=== PATIENT | female | born 1990 | race Caucasian/White ===

== ENCOUNTER 2018-06-05 19:36 | Emergency (ER) | payer OTHER ==
[2018-06-05 21:41] LABS: APPEARANCE,URINE CLEAR; BILIRUBIN,URINE NEGATIVE (NEGATIVE); COLOR,URINE YELLOW; GLUCOSE, URINE NEGATIVE (NEGATIVE); KETONES,URINE NEGATIVE (NEGATIVE); LEUKOCYTE ESTERASE,URINE MODERATE (NEGATIVE); NITRITE,URINE NEGATIVE (NEGATIVE); PROTEIN,URINE NEGATIVE (NEGATIVE); URINE SPECIFIC GRAVITY 1.013
--- NOTE | 2018-06-05 22:57 | ER Document Report ---
HPI - HPI Patient complains to provider of: Dysuria Time Seen by Provider: 06/05/18 21:23 Pain Level: 3 Context: Patient is a 27-year-old female presents to the emergency for dysuria and " Dark" urine. Patient states she had a cholecystectomy 2 weeks ago. States she remembers listing on the paperwork if she had dark urine to present to the emergency room. Patient states when she thinks about it she does have some minor dysuria at the end of urinating. Patient's denying any vaginal discharge. Patient states she also has upper respiratory symptoms. States she has been taking Mucinex and Motrin for generalized cough, congestion, sore throat. Patient states she has been using her at home albuterol inhaler and is requesting a refill. Past medical history asthma, pulmonary embolus in Medications: Albuterol Allergies: None Last menstrual period 05/06/2018 - URINARY Urinary: REPORTS: Dysuria, Urgency, Frequency - REPRODUCTIVE Reproductive: DENIES: : Past Medical History - General Information source: Patient - Social History Smoking Status: Unknown if Ever Smoked Family History: Reviewed & Not Pertinent Patient has suicidal ideation: No Patient has homicidal ideation: No Renal/ Medical History: Denies: Hx Peritoneal Dialysis Vertical Provider Document - CONSTITUTIONAL Agree With Documented VS: Yes Notes: GENERAL: Alert, interacts well. No acute distress. HEAD: Normocephalic, atraumatic. No frontal or maxillary sinus tenderness noted EYES: Pupils equal, round, and reactive to light. Extraocular movements intact. ENT: Oral mucosa moist, tongue midline. Nares patent, swollen turbinates noted bilaterally, TM's intact, nonerythematous, nonbulging bilaterally. Pharynx within normal limits no palatal petechiae noted NECK: Full range of motion. Supple. Trachea midline. No lymphadenopathy appreciated LUNGS: Clear to auscultation bilaterally, no wheezes, rales, or rhonchi. No respiratory distress. HEART: Regular rate and rhythm. No murmur ABDOMEN: Soft, non-tender. Non-distended. Bowel sounds present in all 4 quadrants. EXTREMITIES: Moves all 4 extremities spontaneously. No edema, normal radial and dorsalis pedis pulses bilaterally. No cyanosis. BACK: no cervical, thoracic, lumbar midline tenderness. No saddle anesthesia, normal distal neurovascular exam. NEUROLOGICAL: Alert and oriented x3. Normal speech. cranial nerves II through XII grossly intact PSYCH: Normal affect, normal mood. SKIN: Warm, dry, normal turgor. No rashes or lesions noted. Course - Re-evaluation Re-evalutation: 06/05/18 22:53 Shows no signs of infection, sent for culture. Patient's denying any abdominal pain at this time. Patient will be treated with Nasonex and Tessalon Perles for generalized upper respiratory infection. Patient's vitals are stable, stable for discharge. - Vital Signs Vital signs: Temp Pulse Resp BP Pulse Ox 98.5 F 98 16 135/80 H 99 06/05/18 20:23 06/05/18 20:23 06/05/18 20:23 06/05/18 20:23 06/05/18 20:23 - Laboratory Laboratory results interpreted by me: 06/05/18 20:24 Urine Urobilinogen 2.0 H Ur Leukocyte Esterase MODERATE H Discharge - Discharge Clinical Impression: Upper respiratory infection, Dysuria Condition: Stable Disposition: HOME, SELF-CARE Instructions: Upper Respiratory Illness ([facility]), Viral Syndrome ([facility]) Additional Instructions: As we discussed you have been seen and treated in the emergency department for an upper respiratory infection. You have also been seen for painful urinating. Your urine shows no signs of infection or bleeding. We have sent it for culture. Please make sure you take prescription medications as prescribed, continue with [id number] Mucinex and Motrin. Please stay well-hydrated and follow-up with your primary care provider in the next 24-48 hours. Please return to the emergency room should you have any other concerning symptoms. Prescriptions: Benzonatate [Tessalon Perles 100 mg Capsule] 100 mg PO Q8HP PRN #40 capsule PRN Reason: RX: Albuterol Sulfate [Proair HFA Inhalation Aerosol 8.5 gm MDI] 2 puff IH Q4H PRN #1 mdi PRN Reason: Mometasone Furoate [Nasonex] 1 spray NS Q12 #1 spray.pump Forms: Return to Work
[2018-06-05 23:06] VITALS: BP 144/81
== END 2018-06-05 23:06 | disposition home or self-care (01) ==
LOC: ER 19:36
DX: J06.9 Acute upper respiratory infection, unspecified (principal); R30.0 Dysuria
CPT/HCPCS: 81001; 81025; 87086; 99283

== ENCOUNTER 2018-06-13 20:07 | Emergency (ER) | payer MEDICAID, OTHER ==
--- NOTE | 2018-06-14 01:42 | ER Document Report ---
ED General - General Chief Complaint: Breathing Difficulty Stated Complaint: DIFFICULTY BREATHING Time Seen by Provider: 06/14/18 01:28 Mode of Arrival: Ambulatory Information source: Patient Notes: 27-year-old female with asthma presents with complaint of shortness of breath that started 3 days prior to arrival. Patient does have a previous history of PE and recently was discontinued from Lovenox. Patient also reports a recent cholecystectomy in April 2018. Patient's previous PE was during her first in 2016. Patient reports recent cough, nasal congestion, right upper chest pain that she describes as a dull ache that has been present for approximately 3 weeks. - HPI Onset: Other Onset/Duration: Gradual, Persistent Quality of pain: Achy Severity: Mild Associated symptoms: Chest pain, Nonproductive cough, Shortness of breath. ez es: Fever, Nausea, Vomiting Exacerbated by: Coughing, Deep breathing Relieved by: Denies Similar symptoms previously: Yes Recently seen / treated by doctor: No - Related Data Allergies/Adverse Reactions: No Known Allergies Allergy (Verified 06/05/18 19:42) Past Medical History - General Information source: Patient - Social History Smoking Status: Never Smoker Frequency of alcohol use: None Drug Abuse: None Lives with: Family Family History: Reviewed & Not Pertinent Patient has suicidal ideation: No Patient has homicidal ideation: No Pulmonary Medical History: Reports: Hx Asthma Renal/ Medical History: Denies: Hx Peritoneal Dialysis Past Surgical History: Reports: Hx Cholecystectomy Review of Systems - Review of Systems Constitutional: Recent illness EENT: denies: Blurred vision Cardiovascular: Chest pain, Dyspnea. denies: Palpitations Respiratory: Cough, Short of breath. denies: Wheezing Gastrointestinal: denies: Diarrhea, Nausea, Vomiting Genitourinary: denies: Dysuria Female Genitourinary: Irregular period Musculoskeletal: denies: Back pain Skin: denies: Rash Hematologic/Lymphatic: No symptoms reported Neurological/Psychological: denies: Headaches -: Yes All other systems reviewed and negative Physical Exam - Vital signs Vitals: Temp Pulse Resp BP Pulse Ox 98.1 F 90 16 134/73 H 99 06/13/18 20:18 06/13/18 20:18 06/13/18 20:18 06/13/18 20:18 06/13/18 20:18 - Notes Notes: PHYSICAL EXAMINATION: GENERAL: Well-appearing, well-nourished and in no acute distress. HEAD: Atraumatic, normocephalic. EYES: Pupils equal round and reactive to light, extraocular movements intact, conjunctiva are normal. ENT: Nares patent, oropharynx clear without exudates. Moist mucous membranes. NECK: Normal range of motion, supple without lymphadenopathy LUNGS: Diminished breath sounds in the right lower lung field. No wheezes rales or rhonchi. HEART: Regular rate and rhythm without murmurs ABDOMEN: Soft, nontender, nondistended abdomen. No guarding, no rebound. No masses appreciated. Female : deferred Musculoskeletal: Normal range of motion, no pitting or edema. No cyanosis. NEUROLOGICAL: Cranial nerves grossly intact. Normal speech, normal gait. Normal sensory, motor exams PSYCH: Normal mood, normal affect. SKIN: Warm, Dry, normal turgor, no rashes or lesions noted. Course - Re-evaluation Re-evalutation: 06/14/18 02:56 Laboratory 06/13/18 06/14/18 21:59 01:53 D-Dimer 0.37 Urine Color YELLOW Urine Appearance CLEAR Urine pH 8.0 Ur Specific [place] 1.015 Urine Protein NEGATIVE Urine Glucose (UA) NEGATIVE Urine Ketones NEGATIVE Urine Blood NEGATIVE Urine Nitrite NEGATIVE Urine Bilirubin NEGATIVE Urine Urobilinogen NEGATIVE Ur Leukocyte Esterase SMALL H Urine WBC (Auto) 1 Urine RBC (Auto) 0 Squamous Epi Cells Auto 2 Urine Mucus (Auto) RARE Urine Ascorbic Acid NEGATIVE Urine HCG, Qual NEGATIVE Chest X-Ray 06/14/18 01:36 IMPRESSION: Negative chest copyright 2011 [employer]- All Rights Reserved Temp Pulse Resp BP Pulse Ox 98.3 F 92 16 136/88 H 100 06/14/18 01:13 06/14/18 01:13 06/14/18 01:13 06/14/18 01:13 06/14/18 01:13 Presentation is most consistent with a viral upper respiratory infection. Patient is overall well appearance, vitals within normal limits, well-hydrated. Patient denies any headache, neck pain, and has no evidence of meningismus on examination. Lungs are clear bilaterally. No evidence of respiratory distress. Based on clinical exam and history, I do not suspect an acute pneumonia, pulmonary embolism, meningitis, strep pharyngitis, or an acute encephalitis. Chest x-ray within normal limits. D-dimer unremarkable. Will discharge patient with return precautions and followup recommendations. They are in agreement this plan have verbalized understanding return precautions. - Vital Signs Vital signs: Temp Pulse Resp BP Pulse Ox 98.3 F 92 18 133/70 H 100 06/14/18 03:03 06/14/18 03:03 06/14/18 03:03 06/14/18 03:03 06/14/18 03:03 - Laboratory Laboratory results interpreted by me: 06/13/18 21:59 Ur Leukocyte Esterase SMALL H - Diagnostic Test Radiology reviewed: Image reviewed, Reports reviewed - EKG Interpretation by Me EKG shows normal: Sinus rhythm Rate: Normal Rhythm: NSR When compared to previous EKG there are: No significant change Discharge - Discharge Clinical Impression: Cough Dyspnea Qualifiers: Dyspnea type: unspecified Qualified Code(s): R06.00 - Dyspnea, unspecified URI (upper respiratory infection) Qualifiers: URI type: unspecified URI Qualified Code(s): J06.9 - Acute upper respiratory infection, unspecified Condition: Good Disposition: HOME, SELF-CARE Instructions: Upper Respiratory Illness ([facility]) Additional Instructions: Follow up with your [id number] hours for further care or return to the ED IMMEDIATELY if symptoms worsen or you have any concerns. If you cannot afford to follow up with your primary care physician a list of low cost clinics have been provided at the end of your discharge papers as well. Please return with any worsening shortness of breath, fever, persistent cough or inability to tolerate food or fluids. Most prescribed medications have multiple side effects. The safest thing to do is when filling your prescription speak to your pharmacist regarding possible interactions with your normal home medications and over the counter medications such as Ibuprofen, Tylenol, Benadryl. If you experience any symptoms that cause you discomfort or concern you should discontinue the medication immediately and return to the emergency room or call your primary care physician. Prescriptions: Guaifenesin/Codeine Phos [Robitussin-AC Syrup 59 ml] 5 ml PO QHS PRN #75 ml PRN Reason: Cough Forms: Elevated Blood Pressure
[2018-06-14 02:20] LABS: APPEARANCE,URINE CLEAR; BILIRUBIN,URINE NEGATIVE (NEGATIVE); COLOR,URINE YELLOW; GLUCOSE, URINE NEGATIVE (NEGATIVE); KETONES,URINE NEGATIVE (NEGATIVE); LEUKOCYTE ESTERASE,URINE SMALL (NEGATIVE); NITRITE,URINE NEGATIVE (NEGATIVE); PROTEIN,URINE NEGATIVE (NEGATIVE); URINE SPECIFIC GRAVITY 1.015; UROBILINOGEN,URINE NEGATIVE mg/dL (<2.0)
[2018-06-14] MEDS ORDERED: IPRATROPIUM/ALBUTEROL 0.5-2.5 MG/3 ML AMPUL NEB ONE (02:32)
--- NOTE | 2018-06-14 02:47 | RADIOLOGY REPORT (SQ) ---
EXAM DESCRIPTION: XR CHEST 2 VIEWS COMPLETED DATE/TME: 06/14/2018 01:36 CLINICAL HISTORY: 27 years, Female, sob COMPARISON: None. NUMBER OF VIEWS: 2 TECHNIQUE: 2 views of the chest LIMITATIONS: None. FINDINGS: Heart size normal. Lungs clear. No pneumothorax IMPRESSION: Negative chest copyright 2010 [employer]- All Rights Reserved
[2018-06-14 03:04] VITALS: BP 133/70
--- NOTE | 2018-06-14 15:34 | EKG REPORT ---
SEVERITY:- NORMAL ECG - SINUS RHYTHM : Confirmed by: Nadiya Shell MD 14-Jun-2018 15:32:45
== END 2018-06-14 03:06 | disposition home or self-care (01) ==
LOC: ER 20:07
DX: J06.9 Acute upper respiratory infection, unspecified (principal); R06.00 Dyspnea, unspecified; R06.02 Shortness of breath; Z90.49 Acquired absence of other specified parts of digestive tract
CPT/HCPCS: 93005; 94640; 99285; 36415; 81025; 81001; 85379; 71046; 93010; J7620

== ENCOUNTER → 2018-08-24 | Outpatient (CLI) | payer BC, MEDICAID ==
--- NOTE | 2018-08-24 13:58 | RADIOLOGY REPORT (SQ) ---
EXAM DESCRIPTION: CT ABD/PELVIS WITH IV ORAL COMPLETED DATE/TIME: 08/24/2018 1:35 pm REASON FOR STUDY: ACUTE BILIARY PANCREATITIS (K85.10) K85.10 BILIARY ACUTE PANCREATITIS WITHOUT NEC ROSIS OR INFECT COMPARISON: None. TECHNIQUE: CT scan of the abdomen and pelvis performed using helical scanning technique with dynamic intravenous contrast injection. No oral contrast. Images reviewed with lung, soft tissue, and bone windows. Reconstructed coronal and sagittal MPR images reviewed. Delayed images for evaluation of the urinary system also acquired. All images stored on PACS. All CT scanners at this facility use dose modulation, iterative reconstruction, and/or weight based d osing when appropriate to reduce radiation dose to as low as reasonably achievable (ALARA). [facility]: Dose Right [facility]: CareDose [facility]: Dose Right [facility]: Teradose 4D [facility]: X-BOLT [employer] CONTRAST TYPE AND DOSE: 100 mL Omnipaque 350- low osmolar. RENAL FUNCTION: None required. The patient is less than 50 years old. RADIATION DOSE: CT Rad equipment meets quality standard of care and radiation dose reduction techniq ues were employed. CTDIvol: 10.1 - 11.7 mGy. DLP: 1157 mGy-cm.. LIMITATIONS: None. FINDINGS: LOWER CHEST: No significant findings. No nodules or infiltrates. LIVER: Normal size. No masses. A biliary stent is present. No dilated ducts. SPLEEN: Normal size. No focal lesions. PANCREAS: No masses. No significant calcifications. No adjacent inflammation or peripancreatic fluid collections. Pancreatic duct not dilated. GALLBLADDER: No identified stones by CT criteria. No inflammatory changes to suggest cholecystitis. ADRENAL GLANDS: No significant masses or asymmetry. RIGHT KIDNEY AND URETER: No solid masses. No significant calcifications. No hydronephrosis or hyd roureter. LEFT KIDNEY AND URETER: No solid masses. No significant calcifications. No hydronephrosis or hydr oureter. AORTA AND VESSELS: No aneurysm. No dissection. Renal arteries, SMA, celiac without stenosis. RETROPERITONEUM: No retroperitoneal adenopathy, hemorrhage or masses. BOWEL AND PERITONEAL CAVITY: No masses or inflammatory changes. No free fluid or peritoneal masses. APPENDIX: Normal. PELVIS: No mass. No free fluid. Normal bladder. ABDOMINAL WALL: No masses. No hernias. BONES: No significant or acute findings. OTHER: No other significant finding. IMPRESSION: 1. BILIARY STENT PRESENT. NO DILATED BILE DUCTS OR PANCREATIC DUCT. NO INFLAMMATORY CHANGES INVOLVI NG THE PANCREAS. 2. NO OTHER SIGNIFICANT OR ACUTE FINDING IN THE ABDOMEN OR PELVIS ON CT SCAN WITH IV CONTRAST. TECHNICAL DOCUMENTATION: JOB ID: [id number] Quality ID # [id number]: Final reports with documentation of one or more dose reduction techniques (e.g., Au tomated exposure control, adjustment of the mA and/or kV according to patient size, use of iterative reconstruction technique) 2010 [employer]- All Rights Reserved Reading location - IP/workstation name: [email or web address]
== END ==
LOC: RAD 12:35
PROVIDERS: ATTEND Internal Medicine
DX: K85.10 Biliary acute pancreatitis without necrosis or infection (principal)
CPT/HCPCS: 74177

== ENCOUNTER → 2018-09-10 | Outpatient (CLI) | payer BC ==
[2018-09-10 13:36] LABS: ALANINE AMINOTRANSFERASE 82 U/L (9-52); ALBUMIN 4.4 g/dL (3.5-5.0); ALKALINE PHOSPHATASE 118 U/L (38-126); ANION GAP 11 (5-19); ASPARTATE AMINO TRANSFERASE 19 U/L (14-36); BILIRUBIN,DIRECT 0.3 mg/dL (0.0-0.4); BILIRUBIN,TOTAL 0.5 mg/dL (0.2-1.3); BLOOD UREA NITROGEN 11 mg/dL (7-20); CALCIUM 9.8 mg/dL (8.4-10.2); CARBON DIOXIDE 25 mmol/L (22-30); CHLORIDE 103 mmol/L (98-107); GLUCOSE 87 mg/dL (75-110); POTASSIUM 4.7 mmol/L (3.6-5.0); SODIUM 139.4 mmol/L (137-145); TOTAL PROTEIN 7.1 g/dL (6.3-8.2)
== END ==
LOC: OD 11:38
PROVIDERS: ATTEND Internal Medicine
DX: K85.10 Biliary acute pancreatitis without necrosis or infection (principal)
CPT/HCPCS: 36415; 80053

== ENCOUNTER 2018-09-22 12:23 | Emergency (ER) | payer BC ==
--- NOTE | 2018-09-22 13:25 | ER Document Report ---
ED GI/ - General Chief Complaint: Abdominal Pain Stated Complaint: ABDOMINAL PAIN Time Seen by Provider: 09/22/18 13:04 Primary Care Provider: ROSALINO LE MD [NO LOCAL MD] - Follow up as needed Notes: Patient is a 27-year-old female who presents to the emergency department with a chief complaint of abdominal pain. Patient states that one week ago she had vaginal sexual intercourse with her twice. Patient states that they do not have sexual intercourse frequently and thinks that her lower abdominal discomfort is from that. Patient denies vaginal bleeding or discharge. Patient states the lower abdominal pain is worse with movement. Patient states that over the past week the abdominal pain has gotten better. Patient states she is not here for the lower abdominal pain but states she is concerned she may have pancreatitis due to bilateral lower rib pain. Patient states she had an ERCP performed on September [address] [facility] it and had a stent placed. Patient states she has spoke with her GI doctor regarding her rib pain and was told that it could be the stent settling. Patient states that she has anxiety as that she may believe something is wrong. Patient denies recent cough, cold or fever. Patient denies nausea vomiting or diarrhea. Patient states she was seen in the urgent care last night for urinary symptoms but was told everything was fine and to report to the emergency department for further evaluation. TRAVEL OUTSIDE OF THE [place] IN LAST 30 DAYS: No - Related Data Allergies/Adverse Reactions: prochlorperazine [From Compazine] Allergy (Verified 09/22/18 12:25) Past Medical History - General Information source: Patient - Social History Smoking Status: Unknown if Ever Smoked Cigarette use (# per day): No Frequency of alcohol use: None Drug Abuse: None Lives with: Spouse/Significant other Family History: Reviewed & Not Pertinent Patient has suicidal ideation: No Patient has homicidal ideation: No - Past Medical History Cardiac Medical History: Reports: None Pulmonary Medical History: Reports: Hx Asthma EENT Medical History: Reports: None Neurological Medical History: Reports: None Endocrine Medical History: Reports: None Renal/ Medical History: Reports: None. Denies: Hx Peritoneal Dialysis Malignancy Medical History: Reports: None GI Medical History: Reports: Hx Endoscopic Retrograde Cholangio Musculoskeletal Medical History: Reports None Skin Medical History: Reports None Psychiatric Medical History: Reports: None Traumatic Medical History: Reports: None Infectious Medical History: Reports: None Past Surgical History: Reports: Hx Cholecystectomy Review of Systems - Review of Systems Constitutional: No symptoms reported EENT: No symptoms reported Cardiovascular: No symptoms reported Respiratory: No symptoms reported Gastrointestinal: See HPI Genitourinary: No symptoms reported Female Genitourinary: No symptoms reported Musculoskeletal: No symptoms reported Skin: No symptoms reported Hematologic/Lymphatic: No symptoms reported Neurological/Psychological: No symptoms reported Physical Exam - Vital signs Vitals: Temp Pulse Resp BP Pulse Ox 98.2 F 88 20 123/66 98 09/22/18 12:30 09/22/18 12:30 09/22/18 12:30 09/22/18 12:30 09/22/18 12:30 Interpretation: Normal - Notes Notes: GENERAL: Well-appearing, well-nourished and in no acute distress. HEAD: Atraumatic, normocephalic. EYES: Pupils equal round and reactive to light, extraocular movements intact, sclera anicteric, conjunctiva are normal. ENT: TMs normal, nares patent, oropharynx clear without exudates. Moist mucous membranes. NECK: Normal range of motion, supple without lymphadenopathy or JVD. LUNGS: Breath sounds clear to auscultation bilaterally and equal. No wheezes rales or rhonchi. HEART: Regular rate and rhythm without murmurs, rubs or gallops. ABDOMEN: Soft, abdominal generally non tender throughout - small amount of reported pressure with palpation to the suprapubic region, normoactive bowel sounds. No guarding, no rebound. No masses appreciated. BACK: No cervical, thoracic, lumbar midline tenderness. No saddle anesthesia, normal distal neurovascular exam. GENITOURINARY: Deferred. EXTREMITIES: Normal range of motion, no pitting or edema. No clubbing or cyanosis. NEUROLOGICAL: Cranial nerves II through XII grossly intact. Normal speech, normal gait. PSYCH: Normal mood, normal affect. SKIN: Warm, Dry, normal turgor, no rashes or lesions noted. Course - Re-evaluation Re-evalutation: 09/22/18 13:24 Patient sitting upright on stretcher no acute distress, patient is nontoxic- appearing, patient's abdomen is generally benign with slight reported pressure to the suprapubic area. Will obtain basic labs to rule out pancreatitis, infection or UTI. 09/22/18 14:24 Upon reevaluation patient resting comfortably on stretcher and remains nontoxic- appearing. I did discuss the results with the patient we will treat her with a antibiotic for the urinary tract infection. Did inform the patient she does not have any symptoms or lab findings are consistent with pancreatitis which she was worried about. Patient does not have a leukocytosis, alteration in the electrolytes or any other abnormalities. Did inform the patient to follow-up with her GI doctor advised and if she continues to have discomfort in the upper abdomen. - Vital Signs Vital signs: Temp Pulse Resp BP Pulse Ox 98.3 F 85 16 131/72 H 98 09/22/18 14:52 09/22/18 14:52 09/22/18 14:52 09/22/18 14:52 09/22/18 14:52 - Laboratory Result Diagrams: 09/22/18 13:46 09/22/18 13:46 Laboratory results interpreted by me: 09/22/18 09/22/18 09/22/18 12:40 13:46 13:46 MCV 76 L MCH 25.6 L RDW 14.1 H AST 13 L Ur Leukocyte Esterase LARGE H Discharge - Discharge Clinical Impression: Suprapubic pain Urinary tract infection Qualifiers: Urinary tract infection type: acute cystitis Hematuria presence: without hematuria Qualified Code(s): N30.00 - Acute cystitis without hematuria Abdominal pain Qualifiers: Abdominal location: generalized Qualified Code(s): R10.84 - Generalized abdominal pain Condition: Stable Disposition: HOME, SELF-CARE Additional Instructions: Today you were seen in the emergency department for abdominal pain. Your uri nalysis did just show slight bacteria in the urine in which I will treat you with an antibiotic. Your other labs were within normal limits and did not show an infection in the blood, abnormality of the electrolytes, pancreatitis or alteration of your liver enzymes, no anemia or issues with the kidneys. Please return to the emergency department if you develop fever, vomiting, severe flank pain, yellowing of the skin or eyes OR severe abdominal pain or any worsening symptoms. Urinary Tract Infection Your evaluation indicates that you have a urinary tract infection. This is due to germs growing in the bladder. This is a common problem. This infection usually responds quickly to antibiotics. Your antibiotic should be taken exactly as prescribed. Drink plenty of fluids -- three to four quarts a day. Occasionally, a bladder anesthetic will be prescribed to help stop the feeling of urgency until the antibiotic has a chance to clear the infection. This may cause your urine to be dark orange. Certain urine infections require a culture. If the doctor obtained a culture, the results will be back in two days. You should call to see if a change in treatment is needed. A repeat urinalysis after you finish treatment is often recommended. The physician will let you know if further testing is required. Call the doctor if you develop fever, chills, flank pain, inability to urinate, or blood in the urine. Abdominal Pain There are many causes of abdominal pain. Pain can mean a serious problem requiring surgery (such as appendicitis). It can also be an innocent problem that goes away on its own (such as a viral infection). Often, time must pass to determine the cause of pain. The physician does not feel that hospitalization is necessary, at present. Things may change within the next 24 hours. Call the doctor or come back for re- examination if any problems occur, such as: (1) Pain that becomes more severe, steady, or becomes concentrated in one specific area. Also, pain that is more severe with movement or coughing. (2) Vomiting that persists or becomes more frequent. (3) Blood in the vomitus, urine, or bowel movements. Blood in the stool may have a tarry or black appearance. (4) Shaking chills or fever greater than 100 degrees F. (5) The abdomen becomes more distended or swollen. (6) Bowel movements cease. (7) Failure to improve as expected. Prescriptions: Cephalexin Monohydrate [Keflex 500 mg Capsule] 500 mg PO BID 5 Days capsule Referrals: ROSALINO LE MD [NO LOCAL MD] - Follow up as needed
[2018-09-22 13:30] LABS: APPEARANCE,URINE SLIGHTLY-CLOUDY; BILIRUBIN,URINE NEGATIVE (NEGATIVE); COLOR,URINE YELLOW; GLUCOSE, URINE NEGATIVE (NEGATIVE); KETONES,URINE NEGATIVE (NEGATIVE); LEUKOCYTE ESTERASE,URINE LARGE (NEGATIVE); NITRITE,URINE NEGATIVE (NEGATIVE); PROTEIN,URINE NEGATIVE (NEGATIVE); URINE SPECIFIC GRAVITY 1.013; UROBILINOGEN,URINE NEGATIVE mg/dL (<2.0)
[2018-09-22 14:01] LABS: ABSOLUTE BASOPHILS # (AUTO) 0.1 10^3/uL (0.0-0.2); ABSOLUTE EOSINOPHILS # (AUTO) 0.2 10^3/uL (0.0-0.6); ABSOLUTE LYMPHOCYTES (AUTO) 2.2 10^3/uL (0.5-4.7); ABSOLUTE MONOCYTES (AUTO) 0.5 10^3/uL (0.1-1.4); ABSOLUTE NEUT (AUTO) 2.7 10^3/uL (1.7-8.2); BASOPHILS % (AUTO) 1.7 % (0-2); EOSINOPHILS % (AUTO) 2.9 % (0-6); HEMATOCRIT 36.5 % (36.0-47.0); HEMOGLOBIN 12.3 g/dL (12.0-15.5); LYMPHOCYTES % (AUTO) 38.5 % (13-45); MEAN CORPUSCULAR HEMOGLOBIN 25.6 pg (27.0-33.4); MEAN CORPUSCULAR HGB CONC 33.8 g/dL (32.0-36.0); MEAN CORPUSCULAR VOLUME 76 fl (80-97); MONOCYTES % (AUTO) 9.5 % (3-13); PLATELET COUNT 228 10^3/uL (150-450); RED BLOOD COUNT 4.82 10^6/uL (3.72-5.28); RED CELL DISTRIBUTION WIDTH 14.1 % (11.5-14.0); SEGMENTED NEUTROPHILS % (AUTO) 47.4 % (42-78); TOTAL CELLS COUNTED % (AUTO) 100 %; WHITE BLOOD COUNT 5.6 10^3/uL (4.0-10.5)
[2018-09-22 14:14] LABS: ALANINE AMINOTRANSFERASE 23 U/L (9-52); ALBUMIN 4.2 g/dL (3.5-5.0); ALKALINE PHOSPHATASE 68 U/L (38-126); ANION GAP 7 (5-19); ASPARTATE AMINO TRANSFERASE 13 U/L (14-36); BILIRUBIN,DIRECT 0.1 mg/dL (0.0-0.4); BILIRUBIN,TOTAL 0.3 mg/dL (0.2-1.3); BLOOD UREA NITROGEN 9 mg/dL (7-20); CALCIUM 9.7 mg/dL (8.4-10.2); CARBON DIOXIDE 28 mmol/L (22-30); CHLORIDE 104 mmol/L (98-107); GLUCOSE 84 mg/dL (75-110); POTASSIUM 4.3 mmol/L (3.6-5.0); TOTAL PROTEIN 6.5 g/dL (6.3-8.2)
[2018-09-22] MEDS ORDERED: CEPHALEXIN 500 MG CAPSULE PO ONE (14:25)
[2018-09-22 14:58] VITALS: BP 131/72
== END 2018-09-22 14:55 | disposition home or self-care (01) ==
LOC: ER 12:23
DX: N30.00 Acute cystitis without hematuria (principal); R10.84 Generalized abdominal pain; R07.81 Pleurodynia; Z88.8 Allergy status to other drugs, medicaments and biological substances; Z90.49 Acquired absence of other specified parts of digestive tract
CPT/HCPCS: 36415; 80053; 81001; 81025; 83690; 85025; 87086; 99284

== ENCOUNTER 2018-10-08 17:57 | Emergency (ER) | payer BC ==
[2018-10-08 18:09] VITALS: BP 131/73
[2018-10-08] MEDS ORDERED: NORMAL SALINE 1000 ML 1,000 ML IV ONE (19:49)
[2018-10-08] MEDS ORDERED: MAG HYDROX/AL HYDROX/SIMETH SUSP 30 ML UDCUP PO ONE (19:50)
[2018-10-08] MEDS ORDERED: LIDOCAINE 2% VISCOUS SOLN 20 ML UDCUP PO ONE (19:50)
[2018-10-08] MEDS ORDERED: METOCLOPRAMIDE HCL ORAL SOLN 10 MG/10 ML UDCUP PO ONE (19:50)
--- NOTE | 2018-10-08 19:53 | ER Document Report ---
ED GI/ - General Chief Complaint: Epigastric Pain Stated Complaint: ABDOMINAL PAIN Time Seen by Provider: 10/08/18 19:46 Mode of Arrival: Ambulatory Information source: Patient Notes: 27-year-old female presented to ED for complaint of epigastric pain when she woke up. She states it was burning with nausea and diarrhea. She states the diarrhea has stopped. She states she does have a history of a pulmonary emboli pancreatitis and her gallbladder has been removed. She states she got a stent in the bile duct. She is alert oriented respirations regular and unlabored speaking in full sentences walks with even steady gait. TRAVEL OUTSIDE OF THE [place] IN LAST 30 DAYS: No - HPI Patient complains to provider of: Abdominal pain, Diarrhea - Now relieved Onset: This morning Timing/Duration: Intermittent Quality of pain: Burning Severity at maximum: Moderate Severity in ED: Moderate Pain Level: 3 Location: Epigastric Vaginal bleeding (Compared to normal period): None Associated symptoms: Diarrhea, Nausea Exacerbated by: Denies Relieved by: Denies Similar symptoms previously: Yes Recently seen / treated by doctor: No - Related Data Allergies/Adverse Reactions: adhesive Allergy (Verified 10/08/18 19:36) prochlorperazine [From Compazine] Allergy (Verified 10/08/18 18:06) Past Medical History - General Information source: Patient - Social History Smoking Status: Never Smoker Chew tobacco use (# tins/day): No Frequency of alcohol use: None Drug Abuse: None Occupation: mom Lives with: Family Family History: Reviewed & Not Pertinent Patient has suicidal ideation: No Patient has homicidal ideation: No - Past Medical History Cardiac Medical History: Reports: Hx Pulmonary Embolism Pulmonary Medical History: Reports: Hx Asthma EENT Medical History: Reports: None Endocrine Medical History: Reports: None Renal/ Medical History: Reports: None Malignancy Medical History: Reports: None GI Medical History: Reports: Hx Endoscopic Retrograde Cholangio, Other - pancreatitis Musculoskeletal Medical History: Reports None Skin Medical History: Reports None Psychiatric Medical History: Reports: None Traumatic Medical History: Reports: None Infectious Medical History: Reports: None Past Surgical History: Reports: Hx Cholecystectomy - stent in bile duct Review of Systems - Review of Systems Constitutional: No symptoms reported EENT: No symptoms reported Cardiovascular: No symptoms reported Respiratory: No symptoms reported Gastrointestinal: Abdominal pain - epigastric, Diarrhea - relieved, Nausea. denies: Vomiting Genitourinary: No symptoms reported Female Genitourinary: No symptoms reported Musculoskeletal: No symptoms reported Skin: No symptoms reported Hematologic/Lymphatic: No symptoms reported Neurological/Psychological: No symptoms reported -: Yes All other systems reviewed and negative Physical Exam - Vital signs Vitals: Temp Pulse Resp BP Pulse Ox 98.4 F 96 16 131/73 H 97 10/08/18 18:07 10/08/18 18:07 10/08/18 18:07 10/08/18 18:07 10/08/18 18:07 Interpretation: Normal - General General appearance: Appears well, Alert - HEENT Head: Normocephalic, Atraumatic Eyes: Normal Pupils: PERRL - Respiratory Respiratory status: No respiratory distress Chest status: Nontender Breath sounds: Normal Chest palpation: Normal - Cardiovascular Rhythm: Regular Heart sounds: Normal auscultation Murmur: No - Abdominal Inspection: Normal Distension: No distension Bowel sounds: Normal Tenderness: Tender - epigastric Organomegaly: No organomegaly - Back Back: Normal, Nontender - Extremities General upper extremity: Normal inspection, Nontender, Normal color, Normal ROM, Normal temperature General lower extremity: Normal inspection, Nontender, Normal color, Normal ROM, Normal temperature, Normal weight bearing. No: Sharifa's sign - Neurological Neuro grossly intact: Yes Cognition: Normal Orientation: AAOx4 [place] Coma Scale Eye Opening: Spontaneous Court Coma Scale Verbal: Oriented [place] Coma Scale Motor: Obeys Commands [place] Coma Scale Total: 15 Speech: Normal Motor strength normal: LUE, RUE, LLE, RLE Sensory: Normal - Psychological Associated symptoms: Normal affect, Normal mood - Skin Skin Temperature: Warm Skin Moisture: Dry Skin Color: Normal Course - Re-evaluation Re-evalutation: 10/09/18 02:44 Labs were discussed with patient before discharge. Copy of labs were given to patient before discharge. Patient had relief of pain before she was discharged. She was discharged home with a prescription for Reglan. Patient will follow-up with primary care doctor. - Vital Signs Vital signs: Temp Pulse Resp BP Pulse Ox 98.4 F 96 16 131/73 H 97 10/08/18 18:07 10/08/18 18:07 10/08/18 18:07 10/08/18 18:07 10/08/18 18:07 - Laboratory Result Diagrams: 10/08/18 20:14 10/08/18 20:14 Laboratory results interpreted by me: 10/08/18 10/08/18 10/08/18 18:10 20:14 20:14 RBC 5.32 H MCV 74 L MCH 24.4 L Calcium 10.6 H Urine Blood MODERATE H Discharge - Discharge Clinical Impression: Epigastric abdominal pain Condition: Stable Disposition: HOME, SELF-CARE Instructions: Family Physicians / Practices Additional Instructions: ABDOMINAL PAIN: There are many causes of abdominal pain. Pain can mean a serious problem requiring surgery (such as appendicitis). It can also be an innocent problem that goes away on its own (such as a viral infection). Often, time must pass to determine the cause of pain. The physician does not feel that hospitalization is necessary, at present. Things may change within the next 24 hours. Call the doctor or come back for re- examination if any problems occur, such as: (1) Pain that becomes more severe, steady, or becomes concentrated in one specific area. Also, pain that is more severe with movement or coughing. (2) Vomiting that persists or becomes more frequent. (3) Blood in the vomitus, urine, or bowel movements. Blood in the stool may have a tarry or black appearance. (4) Shaking chills or fever greater than 100 degrees F. (5) The abdomen becomes more distended or swollen. (6) Bowel movements cease. (7) Failure to improve as expected. NORMAL EXAM AND WORKUP: At this time, your examination and workup show no significant abnormality. No significant abnormal physical findings are noted. All laboratory, EKG, and imaging (x-ray, CT scans, ultrasound) studies that were ordered show no significant abnormality. Although your examination and all studies that were ordered showed no significant abnormal finding, there are no examinations and no studies that are 100% accurate. There is always the possibility that some abnormality could exist and not be detected with physical examination or within the limits and capabilities of laboratory and other studies. You should return or follow up as you were instructed on your visit today for further evaluation if your symptoms do not resolve. I discussed your lab results with you and given you a written report of your labs. Please take these with you to a follow-up doctor with 1 of the local doctors. I have given you a list of local doctors in the area. You could go to urgent care to follow-up until he can establish with a primary doctor. I have also given you a prescription for Reglan which will help with the epigastric pain. You could also use Maalox with your Reglan for your epigastric pain. FOLLOW-UP CARE: If you have been referred to a physician for follow-up care, call the physicians office for an appointment as you were instructed or within the next two days. If you experience worsening or a significant change in your symptoms, notify the physician immediately or return to the Emergency Department at any time for re-evaluation. Prescriptions: Metoclopramide HCl [Reglan] 10 mg PO Q6HP PRN #20 tablet PRN Reason: Forms: Elevated Blood Pressure
[2018-10-08 20:33] LABS: ABSOLUTE BASOPHILS # (AUTO) 0.1 10^3/uL (0.0-0.2); ABSOLUTE EOSINOPHILS # (AUTO) 0.3 10^3/uL (0.0-0.6); ABSOLUTE LYMPHOCYTES (AUTO) 2.5 10^3/uL (0.5-4.7); ABSOLUTE MONOCYTES (AUTO) 0.5 10^3/uL (0.1-1.4); ABSOLUTE NEUT (AUTO) 6.3 10^3/uL (1.7-8.2); BASOPHILS % (AUTO) 1.2 % (0-2); EOSINOPHILS % (AUTO) 2.9 % (0-6); HEMATOCRIT 39.6 % (36.0-47.0); LYMPHOCYTES % (AUTO) 26.1 % (13-45); MEAN CORPUSCULAR HEMOGLOBIN 24.4 pg (27.0-33.4); MEAN CORPUSCULAR HGB CONC 32.8 g/dL (32.0-36.0); MEAN CORPUSCULAR VOLUME 74 fl (80-97); MONOCYTES % (AUTO) 4.7 % (3-13); PLATELET COUNT 295 10^3/uL (150-450); RED BLOOD COUNT 5.32 10^6/uL (3.72-5.28); RED CELL DISTRIBUTION WIDTH 13.8 % (11.5-14.0); SEGMENTED NEUTROPHILS % (AUTO) 65.1 % (42-78); TOTAL CELLS COUNTED % (AUTO) 100 %; WHITE BLOOD COUNT 9.6 10^3/uL (4.0-10.5)
[2018-10-08 20:52] LABS: APPEARANCE,URINE CLEAR; BILIRUBIN,URINE NEGATIVE (NEGATIVE); COLOR,URINE STRAW; GLUCOSE, URINE NEGATIVE (NEGATIVE); KETONES,URINE NEGATIVE (NEGATIVE); LEUKOCYTE ESTERASE,URINE NEGATIVE (NEGATIVE); NITRITE,URINE NEGATIVE (NEGATIVE); PROTEIN,URINE NEGATIVE (NEGATIVE); URINE SPECIFIC GRAVITY 1.009; UROBILINOGEN,URINE NEGATIVE mg/dL (<2.0)
[2018-10-08 20:54] LABS: ALBUMIN 4.7 g/dL (3.5-5.0); ALKALINE PHOSPHATASE 67 U/L (38-126); ANION GAP 10 (5-19); ASPARTATE AMINO TRANSFERASE 15 U/L (14-36); BILIRUBIN,DIRECT 0.1 mg/dL (0.0-0.4); BILIRUBIN,TOTAL 0.2 mg/dL (0.2-1.3); BLOOD UREA NITROGEN 11 mg/dL (7-20); CALCIUM 10.6 mg/dL (8.4-10.2); CARBON DIOXIDE 28 mmol/L (22-30); CHLORIDE 102 mmol/L (98-107); GLUCOSE 97 mg/dL (75-110); POTASSIUM 4.8 mmol/L (3.6-5.0); TOTAL PROTEIN 7.2 g/dL (6.3-8.2)
== END 2018-10-08 22:29 | disposition home or self-care (01) ==
LOC: ER 17:57
DX: R10.13 Epigastric pain (principal); R11.0 Nausea; R19.7 Diarrhea, unspecified; J45.909 Unspecified asthma, uncomplicated
CPT/HCPCS: 36415; 83690; 84703; 85025; 80053; 81001; J3490; J7030; 99284

== ENCOUNTER 2018-10-27 23:32 | Emergency (ER) | payer BC ==
[2018-10-27 23:49] VITALS: BP 121/95
--- NOTE | 2018-10-28 00:17 | ER Document Report ---
HPI - HPI Time Seen by Provider: 10/27/18 23:59 Pain Level: 3 Notes: Patient is a 28-year-old female with no significant past medical history presents complaining of left posterior occipital head pain and left trapezius pain status post injury 19 hours ago. Patient states that she was sitting on the side of her glass table on part of the frame when the glass broke and she fell into it hitting the back of her head and her trapezius on another part of the frame. Patient states that there is a blanket covering the entire thing so she did not come in contact with any shards of glass. Total distance dropped was the length of her torso. She did not lose consciousness or have any nausea/vomiting or seizure. Patient states that she has been feeling well since then aside from having a little soreness to the back of her head and trapezius area. The pain does not radiate. She is eating and drinking without difficulty. She is urinating normally and having normal bowel movements. Patient states that she does have some anxiety which prompted her to come get evaluated tonight. Patient states that she is otherwise acting and behaving normally that she is aware of. She is not on any blood thinning meds. Denies any fever, neck pain, changes in vision/speech/mentation/hearing, URI, sore throat, chest pain, palpitations, syncope, cough, shortness of breath, wheeze, dyspnea, abdominal pain, nausea/vomiting/diarrhea, urinary retention, dysuria, hematuria, loss of control of bowel or bladder, numbness/tingling, saddle anesthesia, muscle paralysis/weakness, or rash. - ROS Systems Reviewed and Negative: Yes All other systems reviewed and negative - REPRODUCTIVE Reproductive: DENIES: : Past Medical History - Social History Smoking Status: Unknown if Ever Smoked Family History: Reviewed & Not Pertinent - Past Medical History Cardiac Medical History: Reports: Hx Pulmonary Embolism Pulmonary Medical History: Reports: Hx Asthma Renal/ Medical History: Denies: Hx Peritoneal Dialysis GI Medical History: Reports: Hx Endoscopic Retrograde Cholangio Past Surgical History: Reports: Hx Cholecystectomy - stent in bile duct Vertical Provider Document - CONSTITUTIONAL Agree With Documented VS: Yes Notes: PHYSICAL EXAMINATION: GENERAL: Well-appearing, well-nourished and in no acute distress. A&Ox4. Answers questions appropriately. HEAD: Atraumatic, normocephalic. No randhawa sign. + mild tenderness posterior superior occiput without any ecchymosis, hematoma, or swelling noted. No step- off. EYES: Pupils equal round and reactive to light, extraocular movements intact, sclera anicteric, conjunctiva are normal. No raccoon eyes/entrapment ENT: EAC clear b/l. TM's intact b/l without erythema, fluid, or perforation. Nares patent and without discharge. oropharynx clear without exudates. No tonsilar hypertrophy or erythema. Moist mucous membranes. No sinus tenderness. No hemotympanum/CSF discharge. NECK: Normal range of motion, supple without lymphadenopathy. No rigidity. No midline tenderness. LUNGS: Breath sounds clear to auscultation bilaterally and equal. No wheezes rales or rhonchi. HEART: Regular rate and rhythm without murmurs, rubs, gallops. ABDOMEN: Soft, nontender, nondistended abdomen. No guarding, no rebound. Normal bowel sounds present. No CVA tenderness bilaterally. Musculoskeletal: Ext b/l: FROM to passive/active. Strength 5+/5. No deficits noted. No bony tenderness of extremities. left UE: + reproducible mild tenderness noted to the trapezius mm. No bony tenderness to shoulder, scapula, clavicle, or c-spine as noted above. Back: FROM to passive/active. Strength 5+/5. No vertebral point tenderness, stepoffs, or deformities. No other bony tenderness or ecchymosis. SLR negative b/l. Extremities: No cyanosis, clubbing, or edema b/l. Peripheral pulses 2+. Capillary refill less than 2 seconds. NEUROLOGICAL: NIH 0. GCS 15. Cranial nerves grossly intact. Normal speech, normal gait. Normal sensory, motor exams. Reflexes 2+ b/l. SIERRA's negative. Pronator drift negative. Heel/durbin, finger/nose wnl. Romberg negative PSYCH: Normal mood, normal affect. SKIN: Warm, Dry, normal turgor, no rashes or lesions noted. - INFECTION CONTROL TRAVEL OUTSIDE OF THE [place] IN LAST 30 DAYS: No Course - Re-evaluation Re-evalutation: 10/28/18 00:17 Patient is an afebrile, well-hydrated, 28-year-old female who presents with closed head injury, suspect benign. Vitals are acceptable without significant tachycardia, tachypnea, or hypoxia. PE is otherwise unremarkable for any focal neurological deficits, neurovascular compromise, obvious tendon/leg rupture, obvious fracture/dislocation, septic joint. NIH 0, GCS 15, cranial nerves grossly intact, Nexus criteria negative, CT Garden head criteria negative. I did review the risk and benefit of CT imaging at this time with the patient and she declined any CT imaging which I am in agreement with. Return precautions reviewed thoroughly. Low suspicion for any acute glaucoma, temporal arteritis, meningitis, intracranial hemorrhage, ischemic stroke, or fracture at this time. Patient is aware that this condition can change from initial presentation and that she needs to monitor symptoms closely for any acute changes. Conservative measures for symptoms. Recheck with your PCM in 2 to 3 days. Return to the ED with any other worsening/concerning symptoms. Patient is in agreement. - Vital Signs Vital signs: Temp Pulse Resp BP Pulse Ox 98.3 F 89 18 121/95 H 100 10/27/18 23:37 10/27/18 23:37 10/27/18 23:37 10/27/18 23:37 10/27/18 23:37 Discharge - Discharge Clinical Impression: Closed head injury Qualifiers: Encounter type: initial encounter Qualified Code(s): S09.90XA - Unspecified injury of head, initial encounter Condition: Stable Disposition: HOME, SELF-CARE Additional Instructions: Rest, Ice/cool compress Tylenol/ibuprofen as needed Light stretches daily Strength exercises as able Moist heat and massage may help F/u with your PCP in 2-3 days for a recheck Consider consult(s) with Neurology for ongoing/worsening symptoms Return to the ED with any worsening symptoms and/or development of fever, headache, changes in behavior/mentation/vision/speech, chest pain, palpitations, syncope, shortness of breath, trouble breathing, abdominal pain, n/v/d, blood in stool/urine, loss of control of bowel/bladder, urinary retention, muscle weakness/paralysis, saddle anesthesia, numbness/tingling, or other worsening symptoms that are concerning to you. Forms: Elevated Blood Pressure Referrals: TERESA ZAMORANO MD [NO LOCAL MD] - Follow up as needed
== END 2018-10-28 00:26 | disposition home or self-care (01) ==
LOC: ER 23:32
DX: S09.90XA Unspecified injury of head, initial encounter (principal); R51 Headache; W22.8XXA Striking against or struck by other objects, initial encounter; J45.909 Unspecified asthma, uncomplicated; F41.9 Anxiety disorder, unspecified
CPT/HCPCS: 99283

== ENCOUNTER 2018-11-25 15:25 | Emergency (ER) | payer BC ==
[2018-11-25 15:33] VITALS: BP 133/77
--- NOTE | 2018-11-25 16:20 | ER Document Report ---
ED Medical Screen (RME) - General Chief Complaint: Abdominal Pain Stated Complaint: RIB PAIN Time Seen by Provider: 11/25/18 16:13 Information source: Patient Notes: Patient presents complaining of midsternal chest pain and rib pain. Patient states that she had an ERCP performed 2 days ago because she had trouble with her common bile duct remaining patent after a cholecystectomy. Patient states she has had a stent placed although it is currently out at this time. Patient states that last time she had an ERCP she developed pancreatitis and she was concerned about this today. Patient denies any fever nausea or vomiting. Patient does report mild cough. hx: Asthma, PE, cholecystectomy, common bile duct stenting and removal, pancreatitis I have greeted and performed a rapid initial assessment of this patient. A comprehensive ED assessment and evaluation of the patient, analysis of test results and completion of the medical decision making process will be conducted by additional ED providers. TRAVEL OUTSIDE OF THE [place] IN LAST 30 DAYS: No - Related Data Allergies/Adverse Reactions: adhesive Allergy (Verified 11/25/18 16:12) prochlorperazine [From Compazine] Allergy (Verified 11/25/18 16:12) Past Medical History - Past Medical History Cardiac Medical History: Reports: Hx Pulmonary Embolism Pulmonary Medical History: Reports: Hx Asthma Renal/ Medical History: Denies: Hx Peritoneal Dialysis GI Medical History: Reports: Hx Endoscopic Retrograde Cholangio Past Surgical History: Reports: Hx Cholecystectomy - stent in bile duct Physical Exam - Vital signs Vitals: Temp Pulse Resp BP Pulse Ox 98.3 F 100 14 133/77 H 98 11/25/18 15:32 11/25/18 15:32 11/25/18 15:32 11/25/18 15:32 11/25/18 15:32 - General General appearance: Appears well Notes: Lower costal rib tenderness bilaterally Course - Vital Signs Vital signs: Temp Pulse Resp BP Pulse Ox 98.3 F 100 14 133/77 H 98 11/25/18 15:32 11/25/18 15:32 11/25/18 15:32 11/25/18 15:32 11/25/18 15:32
--- NOTE | 2018-11-25 17:35 | RADIOLOGY REPORT (SQ) ---
EXAM DESCRIPTION: CHEST 2 VIEWS COMPLETED DATE/TIME: 11/25/2018 5:26 pm REASON FOR STUDY: cough, cp, rib pain COMPARISON: Two-view chest 06/23/2018 EXAM PARAMETERS: NUMBER OF VIEWS: two views TECHNIQUE: Digital Frontal and Lateral radiographic views of the chest acquired. RADIATION DOSE: NA LIMITATIONS: none FINDINGS: LUNGS AND PLEURA: No opacities, masses or pneumothorax. No pleural effusion. MEDIASTINUM AND HILAR STRUCTURES: No masses or contour abnormalities. HEART AND VASCULAR STRUCTURES: Heart normal size. No evidence for failure. BONES: No acute findings. HARDWARE: Clips right upper quadrant post cholecystectomy. OTHER: No other significant finding. IMPRESSION: NO ACUTE RADIOGRAPHIC FINDING IN THE CHEST. TECHNICAL DOCUMENTATION: JOB ID: [id number] [employer]- All Rights Reserved Reading location - IP/workstation name: [email or web address]
[2018-11-25 17:40] LABS: ALBUMIN 4.4 g/dL (3.5-5.0); ALKALINE PHOSPHATASE 190 U/L (38-126); ANION GAP 11 (5-19); ASPARTATE AMINO TRANSFERASE 60 U/L (14-36); BILIRUBIN,DIRECT 0.1 mg/dL (0.0-0.4); BILIRUBIN,TOTAL 0.4 mg/dL (0.2-1.3); BLOOD UREA NITROGEN 12 mg/dL (7-20); CALCIUM 10.3 mg/dL (8.4-10.2); CARBON DIOXIDE 25 mmol/L (22-30); CHLORIDE 103 mmol/L (98-107); GLUCOSE 91 mg/dL (75-110); POTASSIUM 4.3 mmol/L (3.6-5.0); TOTAL PROTEIN 7.1 g/dL (6.3-8.2)
[2018-11-25] MEDS ORDERED: DICYCLOMINE HCL 10 MG CAPSULE PO ONE (21:29)
[2018-11-25] MEDS ORDERED: PANTOPRAZOLE SODIUM 20 MG TABLET.DR PO ONE (21:29)
--- NOTE | 2018-11-25 21:38 | ER Document Report ---
ED General - General Chief Complaint: Abdominal Pain Stated Complaint: RIB PAIN Time Seen by Provider: 11/25/18 16:13 TRAVEL OUTSIDE OF THE [place] IN LAST 30 DAYS: No - HPI Notes: This is a 28-year-old female who presents today with complaint of epigastric pain that started this morning. Patient has had intermittent pain off and on for some time now. She had an ERCP that was done on Monday which was un remarkable. She is status post cholecystectomy. She describes the pain as aching and burning, sometimes worse with food or lying supine. She denies any lower abdominal pain. She denies any fever or chills. She denies any vomiting or diarrhea. - Related Data Allergies/Adverse Reactions: adhesive Allergy (Verified 11/25/18 16:12) prochlorperazine [From Compazine] Allergy (Verified 11/25/18 16:12) Past Medical History - General Information source: Patient - Social History Smoking Status: Never Smoker Family History: Reviewed & Not Pertinent Patient has suicidal ideation: No Patient has homicidal ideation: No - Past Medical History Cardiac Medical History: Reports: Hx Pulmonary Embolism Pulmonary Medical History: Reports: Hx Asthma Renal/ Medical History: Denies: Hx Peritoneal Dialysis GI Medical History: Reports: Hx Endoscopic Retrograde Cholangio Past Surgical History: Reports: Hx Cholecystectomy - stent in bile duct Review of Systems - Review of Systems Constitutional: denies: Fever, Weakness Gastrointestinal: Abdominal pain. denies: Diarrhea, Nausea, Vomiting Genitourinary: denies: Burning, Dysuria, Flank pain -: Yes All other systems reviewed and negative Physical Exam - Vital signs Vitals: Temp Pulse Resp BP Pulse Ox 98.3 F 100 14 133/77 H 98 11/25/18 15:32 11/25/18 15:32 11/25/18 15:32 11/25/18 15:32 11/25/18 15:32 - General General appearance: Appears well, Alert - HEENT Head: Normocephalic, Atraumatic Eyes: Normal Pupils: PERRL - Respiratory Respiratory status: No respiratory distress Chest status: Nontender Breath sounds: Normal Chest palpation: Normal - Cardiovascular Rhythm: Regular Heart sounds: Normal auscultation Murmur: No - Abdominal Inspection: Normal Distension: No distension Bowel sounds: Normal Tenderness: Tender - There is very mild epigastric tenderness. No guarding or rebound. No right upper quadrant tenderness. Organomegaly: No organomegaly - Back Back: Normal - Neurological Neuro grossly intact: Yes Cognition: Normal Orientation: AAOx4 [place] Coma Scale Eye Opening: Spontaneous Court Coma Scale Verbal: Oriented Court Coma Scale Motor: Obeys Commands Court Coma Scale Total: 15 Speech: Normal Motor strength normal: LUE, RUE, LLE, RLE Sensory: Normal - Psychological Associated symptoms: Normal affect, Normal mood - Skin Skin Temperature: Warm Skin Moisture: Dry Skin Color: Normal Course - Re-evaluation Re-evalutation: 11/25/18 21:38 Differential diagnosis includes gastritis versus pancreatitis versus nonspecific abdominal pain versus GERD. Will check basic labs. 11/25/18 23:17 Patient reevaluated. Patient is doing well. Nurses were unable to get CBC. Patient refuses to be stuck again. She feels fine. She is stable for discharge. - Vital Signs Vital signs: Temp Pulse Resp BP Pulse Ox 98.3 F 100 14 133/77 H 98 11/25/18 15:32 11/25/18 15:32 11/25/18 15:32 11/25/18 15:32 11/25/18 15:32 - Laboratory Result Diagrams: 11/25/18 17:06 Laboratory results interpreted by me: 11/25/18 17:06 Calcium 10.3 H AST 60 H Alkaline Phosphatase 190 H Discharge - Discharge Clinical Impression: Abdominal pain Qualifiers: Abdominal location: upper abdomen, unspecified Qualified Code(s): R10.10 - Upper abdominal pain, unspecified Acute gastritis without bleeding Qualifiers: Gastritis type: unspecified gastritis Qualified Code(s): K29.00 - Acute gastritis without bleeding Condition: Good Disposition: HOME, SELF-CARE Instructions: Abdominal Pain ([facility]), Antispasmodics ([facility]), Gastritis ([facility]) Prescriptions: Dicyclomine HCl [Bentyl 20 mg Tablet] 20 mg PO QID PRN #20 tablet PRN Reason: Abdominal Cramping Esomeprazole Mag Trihydrate [Nexium] 40 mg PO DAILY 30 Days #30 capsule. Referrals: [facility] [NO LOCAL MD] - Follow up in 3-5 days
== END 2018-11-25 23:23 | disposition home or self-care (01) ==
LOC: ER 15:25
DX: K29.00 Acute gastritis without bleeding (principal); R10.10 Upper abdominal pain, unspecified; R07.81 Pleurodynia; R10.13 Epigastric pain; Z90.49 Acquired absence of other specified parts of digestive tract
CPT/HCPCS: 99283; 36415; 83690; 80053; 71046; J3490 ×2

== ENCOUNTER → 2018-11-30 | Outpatient (CLI) | payer BC ==
[2018-11-30 17:18] LABS: ALBUMIN 4.3 g/dL (3.5-5.0); ALKALINE PHOSPHATASE 108 U/L (38-126); ANION GAP 12 (5-19); ASPARTATE AMINO TRANSFERASE 21 U/L (14-36); BILIRUBIN,DIRECT 0.1 mg/dL (0.0-0.4); BILIRUBIN,TOTAL 0.3 mg/dL (0.2-1.3); BLOOD UREA NITROGEN 11 mg/dL (7-20); CALCIUM 9.8 mg/dL (8.4-10.2); CARBON DIOXIDE 23 mmol/L (22-30); CHLORIDE 104 mmol/L (98-107); GLUCOSE 86 mg/dL (75-110); POTASSIUM 3.8 mmol/L (3.6-5.0); TOTAL PROTEIN 6.9 g/dL (6.3-8.2)
== END ==
LOC: OD 16:22
PROVIDERS: ATTEND Internal Medicine
DX: K85.10 Biliary acute pancreatitis without necrosis or infection (principal)
CPT/HCPCS: 36415; 80053

== ENCOUNTER 2018-12-17 18:27 | Emergency (ER) | payer BC ==
--- NOTE | 2018-12-17 18:48 | ER Document Report ---
ED Medical Screen (RME) - General Chief Complaint: Chest Pain Stated Complaint: EPIGASTRIC PAIN Time Seen by Provider: 12/17/18 18:45 Primary Care Provider: ROSALINO LE MD [Primary Care Provider] - Follow up as needed Mode of Arrival: Ambulatory Information source: Patient Notes: 28-year-old female presents to ED for complaint of chest and epigastric pain for the last 4 days. She states she is been trying using Prilosec and Zantac Zantac for the last 3 days. She states she is having nausea and vomiting, has not vomited today but did last night. Patient had a gallbladder removed and then had problems with that and had a stent and her stent was removed on November 23. She states she has used Bentyl in the past for her abdominal pain. Ordered a day. Last menstrual period December 07. I have greeted and performed a rapid initial assessment of this patient. A comprehensive ED assessment and evaluation of the patient, analysis of test results and completion of medical decision making process will be conducted by an additional ED providers. TRAVEL OUTSIDE OF THE [place] IN LAST 30 DAYS: No - Related Data Allergies/Adverse Reactions: adhesive Allergy (Verified 11/25/18 16:12) prochlorperazine [From Compazine] Allergy (Verified 11/25/18 16:12) Past Medical History - Past Medical History Cardiac Medical History: Reports: Hx Pulmonary Embolism Pulmonary Medical History: Reports: Hx Asthma Renal/ Medical History: Denies: Hx Peritoneal Dialysis GI Medical History: Reports: Hx Endoscopic Retrograde Cholangio Past Surgical History: Reports: Hx Cholecystectomy - stent in bile duct Physical Exam - Vital signs Vitals: Temp Pulse Resp BP Pulse Ox 97.7 F 95 16 135/80 H 99 12/17/18 18:38 12/17/18 18:38 12/17/18 18:38 12/17/18 18:38 12/17/18 18:38 Course - Vital Signs Vital signs: Temp Pulse Resp BP Pulse Ox 97.7 F 95 16 135/80 H 99 12/17/18 18:38 12/17/18 18:38 12/17/18 18:38 12/17/18 18:38 12/17/18 18:38 Doctor's Discharge - Discharge Referrals: ROSALINO LE MD [Primary Care Provider] - Follow up as needed
[2018-12-17] MEDS ORDERED: ACETAMINOPHEN 325 MG TABLET PO ONE (18:49)
[2018-12-17 20:09] LABS: ABSOLUTE BASOPHILS # (AUTO) 0.1 10^3/uL (0.0-0.2); ABSOLUTE EOSINOPHILS # (AUTO) 0.2 10^3/uL (0.0-0.6); ABSOLUTE MONOCYTES (AUTO) 0.4 10^3/uL (0.1-1.4); ABSOLUTE NEUT (AUTO) 3.6 10^3/uL (1.7-8.2); BASOPHILS % (AUTO) 1.2 % (0-2); EOSINOPHILS % (AUTO) 3.5 % (0-6); HEMATOCRIT 37.7 % (36.0-47.0); HEMOGLOBIN 12.2 g/dL (12.0-15.5); LYMPHOCYTES % (AUTO) 31.3 % (13-45); MEAN CORPUSCULAR HGB CONC 32.4 g/dL (32.0-36.0); MEAN CORPUSCULAR VOLUME 77 fl (80-97); MONOCYTES % (AUTO) 6.9 % (3-13); PLATELET COUNT 229 10^3/uL (150-450); RED BLOOD COUNT 4.89 10^6/uL (3.72-5.28); RED CELL DISTRIBUTION WIDTH 16.4 % (11.5-14.0); SEGMENTED NEUTROPHILS % (AUTO) 57.1 % (42-78); TOTAL CELLS COUNTED % (AUTO) 100 %; WHITE BLOOD COUNT 6.2 10^3/uL (4.0-10.5)
[2018-12-17 20:14] LABS: PROTHROMBIN TIME 12.1 SEC (11.4-15.4)
[2018-12-17 20:15] LABS: PARTIAL THROMBOPLASTIN TIME 29.5 SEC (23.5-35.8)
[2018-12-17 20:25] LABS: ALBUMIN 4.4 g/dL (3.5-5.0); ALKALINE PHOSPHATASE 435 U/L (38-126); ANION GAP 10 (5-19); ASPARTATE AMINO TRANSFERASE 302 U/L (14-36); BILIRUBIN,DIRECT 0.4 mg/dL (0.0-0.4); BILIRUBIN,TOTAL 0.6 mg/dL (0.2-1.3); BLOOD UREA NITROGEN 10 mg/dL (7-20); CALCIUM 10.1 mg/dL (8.4-10.2); CARBON DIOXIDE 30 mmol/L (22-30); CHLORIDE 100 mmol/L (98-107); CREATINE KINASE 38 U/L (30-135); GLUCOSE 85 mg/dL (75-110); POTASSIUM 4.5 mmol/L (3.6-5.0); TOTAL PROTEIN 7.3 g/dL (6.3-8.2)
[2018-12-17] MEDS ORDERED: LIDOCAINE 2% VISCOUS SOLN 20 ML UDCUP PO ONE (20:33)
[2018-12-17] MEDS ORDERED: METOCLOPRAMIDE HCL ORAL SOLN 10 MG/10 ML UDCUP PO ONE (20:33)
[2018-12-17] MEDS ORDERED: MAG HYDROX/AL HYDROX/SIMETH SUSP 30 ML UDCUP PO ONE (20:33)
[2018-12-17 20:37] LABS: NT PRO BNP 35 pg/mL (<125)
--- NOTE | 2018-12-17 20:44 | ER Document Report ---
ED General - General Chief Complaint: Epigastric Pain Stated Complaint: EPIGASTRIC PAIN Time Seen by Provider: 12/17/18 18:45 Primary Care Provider: GAGE SEALS MD [ACTIVE STAFF] - Follow up as needed SABRA OLIVER MD [ACTIVE STAFF] - Follow up as needed ROSALINO LE MD [NO LOCAL MD] - Follow up as needed Mode of Arrival: Ambulatory TRAVEL OUTSIDE OF THE [place] IN LAST 30 DAYS: No - HPI Notes: Patient is a 28-year-old female with history of cholecystectomy as well as previous PE during who presents complaining of epigastric abdominal pain and lower sternal chest pain over the past 4 days. Patient states the pain is been relatively constant. Patient states that it feels like "intense acid reflux" and a cramp. The pain does not radiate. She has been able to eat and drink without difficulty. She is urinating normally and having normal bowel movements. She has not had any dyspnea on exertion or worsening symptoms with exertion. Lying flat will increase her symptoms at times as well. Patient states that this is not similar to when she had a PE before. Denies any headache, fever, neck pain, URI, sore throat, palpitations, syncope, cough, shortness of breath, wheeze, dyspnea, nausea/vomiting/diarrhea, urinary reten tion, dysuria, hematuria, or rash. - Related Data Allergies/Adverse Reactions: adhesive Allergy (Verified 11/25/18 16:12) prochlorperazine [From Compazine] Allergy (Verified 11/25/18 16:12) Past Medical History - General Information source: Patient - Social History Smoking Status: Never Smoker Frequency of alcohol use: None Drug Abuse: None Family History: Reviewed & Not Pertinent Patient has suicidal ideation: No Patient has homicidal ideation: No - Past Medical History Cardiac Medical History: Reports: Hx Pulmonary Embolism Pulmonary Medical History: Reports: Hx Asthma Renal/ Medical History: Denies: Hx Peritoneal Dialysis GI Medical History: 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 HEAD: Atraumatic, normocephalic. EYES: Pupils equal round and reactive to light, extraocular movements intact, sclera anicteric, conjunctiva are normal. ENT: Nares patent and without discharge. oropharynx clear without exudates. No tonsilar hypertrophy or erythema. Moist mucous membranes. NECK: Normal range of motion, supple without lymphadenopathy LUNGS: Breath sounds clear to auscultation bilaterally and equal. No wheezes rales or rhonchi. HEART: Regular rate and rhythm without murmurs, rubs, gallops. ABDOMEN: Soft, nondistended abdomen. No guarding, no rebound. Normal bowel sounds present. No CVA tenderness bilaterally. + reproducible tenderness epigastric tenderness to palp. Musculoskeletal: FROM to passive/active. Strength 5+/5. Sharifa neg. No asymmetry to LE's. Extremities: No cyanosis, clubbing, or edema b/l. Peripheral pulses 2+. Capillary refill less than 3 seconds. NEUROLOGICAL: Normal speech, normal gait. PSYCH: Normal mood, normal affect. SKIN: Warm, Dry, normal turgor, no rashes or lesions noted. Course - Re-evaluation Re-evalutation: 12/17/18 21:42 Patient is an afebrile, well-hydrated, 28-year-old female who presents with epigastric abdominal pain. Vitals are acceptable without significant tachycardia, tachypnea, or hypoxia. PE is otherwise unremarkable. Patient is nontoxic-appearing and is tolerating p.o. without difficulty. Labs unremarkable. GI cocktail was provided which almost completely resolved her symptoms. She has not had any shortness of breath or dyspnea on exertion. Patient's presentation and symptomatology creates low suspicion for ACS, PE, pneumothorax, pericarditis, dissection, respiratory compromise, severe dehydration, sepsis, meningitis, esophag rupture, or other systemic emergent condition at this time. Patient is aware that this condition can change from initial presentation and she needs to monitor symptoms closely and seek medical attention for any acute changes. Rx for omeprazole and carafate. Recommend conservative measures for symptoms. Recheck with your PCM in 2-3 days. Consider consult with GI. Return to the ED with any worsening/concerning symptoms otherwise as reviewed in discharge. Patient is in agreement. - Vital Signs Vital signs: Temp Pulse Resp BP Pulse Ox 97.7 F 95 16 135/80 H 99 12/17/18 18:38 12/17/18 18:38 12/17/18 18:38 12/17/18 18:38 12/17/18 18:38 - Laboratory Result Diagrams: 12/17/18 19:40 12/17/18 19:40 Laboratory results interpreted by me: 12/17/18 12/17/18 19:40 19:40 MCV 77 L MCH 25.0 L RDW 16.4 H AST 302 H Alkaline Phosphatase 435 H Discharge - Discharge Clinical Impression: Epigastric abdominal pain Condition: Stable Disposition: HOME, SELF-CARE Additional Instructions: Maintain adequate fluid and food intake Avoid spices, caffeine, citrus, etc tylenol if needed Monitor for any worsening symptoms Make sure you are staying hydrated enough to urinate and have normal BM's Recheck with your PCM in 2-3 days Schedule consult with Gastroenterology Return to the ED with any worsening symptoms and/or development of fever, hea dache, chest pain, palpitations, syncope, shortness of breath, trouble breathing, abdominal pain, n/v/d, blood in stool/urine, weakness, or other worsening symptoms that are concerning to you. Prescriptions: Sucralfate [Carafate] 1 gm PO BID #100 ml Omeprazole 20 mg PO DAILY #30 tablet.dr Forms: Elevated Blood Pressure, Return to Work Referrals: ROSALINO LE MD [NO LOCAL MD] - Follow up as needed GAGE SEALS MD [ACTIVE STAFF] - Follow up as needed SABRA OLIVER MD [ACTIVE STAFF] - Follow up as needed
[2018-12-17 20:47] LABS: TROPONIN I < 0.012 ng/mL
[2018-12-17 22:01] VITALS: BP 143/84
--- NOTE | 2018-12-18 09:26 | EKG REPORT ---
SEVERITY:- NORMAL ECG - SINUS RHYTHM : Confirmed by: Nadiya Shell MD 18-Dec-2018 09:25:59
== END 2018-12-17 22:01 | disposition home or self-care (01) ==
LOC: ER 18:27
DX: R10.13 Epigastric pain (principal); R10.816 Epigastric abdominal tenderness; R07.9 Chest pain, unspecified; J45.909 Unspecified asthma, uncomplicated; Z86.711 Personal history of pulmonary embolism; Z91.048 Other nonmedicinal substance allergy status; Z88.8 Allergy status to other drugs, medicaments and biological substances; Z90.49 Acquired absence of other specified parts of digestive tract
CPT/HCPCS: 93005; 36415; 82553; 82550; 83690; 83735; 84443; 84703; 85025; 85610; 85730; 80053; 84484; 83880; 93010; J3490; 99284

== ENCOUNTER 2018-12-20 17:28 | Emergency (ER) | payer BC ==
--- NOTE | 2018-12-20 18:08 | ER Document Report ---
ED Medical Screen (RME) - General Chief Complaint: Chest Wall Pain Stated Complaint: RIGHT SIDE AND RIB CAGE PAIN Time Seen by Provider: 12/20/18 18:03 Mode of Arrival: Ambulatory Information source: Patient Notes: 28-year-old female presented to ED for complaint of right upper quadrant abdominal pain. She states she was having nausea and vomiting about 5 days ago but no nausea vomiting today and she is alert oriented respirations regular nonlabored speaking in full sentences. She did have her gallbladder out about a year ago she did need a stent. She has a procedure scheduled for next week to possibly place another stent in the bile ducts. I have greeted and performed a rapid initial assessment of this patient. A comprehensive ED assessment and evaluation of the patient, analysis of test results and completion of medical decision making process will be conducted by an additional ED providers. TRAVEL OUTSIDE OF THE [place] IN LAST 30 DAYS: No - Related Data Allergies/Adverse Reactions: adhesive Allergy (Verified 12/20/18 17:57) prochlorperazine [From Compazine] Allergy (Verified 12/20/18 17:57) Past Medical History - Social History Chew tobacco use (# tins/day): No Frequency of alcohol use: None Drug Abuse: None - Past Medical History Cardiac Medical History: Reports: Hx Pulmonary Embolism Pulmonary Medical History: Reports: Hx Asthma Renal/ Medical History: Denies: Hx Peritoneal Dialysis GI Medical History: Reports: Hx Endoscopic Retrograde Cholangio Past Surgical History: Reports: Hx Cholecystectomy - stent in bile duct Physical Exam - Vital signs Vitals: Temp Pulse Resp BP Pulse Ox 98.2 F 117 H 20 132/90 H 100 12/20/18 17:46 12/20/18 17:46 12/20/18 17:46 12/20/18 17:46 12/20/18 17:46 Course - Vital Signs Vital signs: Temp Pulse Resp BP Pulse Ox 98.2 F 117 H 20 132/90 H 100 12/20/18 17:46 12/20/18 17:46 12/20/18 17:46 12/20/18 17:46 12/20/18 17:46
--- NOTE | 2018-12-20 19:03 | RADIOLOGY REPORT (SQ) ---
EXAM DESCRIPTION: U/S ABDOMEN LIMITED W/O DOP COMPLETED DATE/TIME: 12/20/2018 6:51 pm REASON FOR STUDY: Right upper quadrant abdominal pain gallbladder ou COMPARISON: CT of the abdomen pelvis with contrast from 08/24/2018. TECHNIQUE: Dynamic and static grayscale images acquired of the abdomen and recorded on PACS. Additio nal selected color Doppler and spectral images recorded. LIMITATIONS: None. FINDINGS: PANCREAS: The visualized portions of the pancreas appear normal. LIVER: Normal contour and echotexture. LIVER VASCULATURE: Normal directional flow of the main portal vein and hepatic veins. GALLBLADDER: The gallbladder is surgically absent. ULTRASOUND-DETECTED SHEPHERD'S SIGN: Negative. INTRAHEPATIC DUCTS AND COMMON DUCT: The common bile duct measures 4 mm in diameter. There is no dila tation of the intrahepatic biliary ducts. INFERIOR VENA CAVA: Normal flow. AORTA: No aneurysm. RIGHT KIDNEY: The right kidney measures 11 cm in length. There is no hydronephrosis. PERITONEAL AND RIGHT PLEURAL SPACE: No ascites or effusions. OTHER: No other findings. IMPRESSION: Status post cholecystectomy. Normal caliber of the common bile duct without a filling d efect. No dilate station of the intrahepatic biliary ducts. TECHNICAL DOCUMENTATION: JOB ID: [id number] [employer]- All Rights Reserved Reading location - IP/workstation name: [email or web address]
[2018-12-20 19:27] LABS: ABSOLUTE BASOPHILS # (AUTO) 0.1 10^3/uL (0.0-0.2); ABSOLUTE EOSINOPHILS # (AUTO) 0.3 10^3/uL (0.0-0.6); ABSOLUTE LYMPHOCYTES (AUTO) 2.3 10^3/uL (0.5-4.7); ABSOLUTE MONOCYTES (AUTO) 0.6 10^3/uL (0.1-1.4); ABSOLUTE NEUT (AUTO) 6.1 10^3/uL (1.7-8.2); EOSINOPHILS % (AUTO) 2.9 % (0-6); HEMATOCRIT 39.8 % (36.0-47.0); HEMOGLOBIN 12.9 g/dL (12.0-15.5); LYMPHOCYTES % (AUTO) 24.6 % (13-45); MEAN CORPUSCULAR HEMOGLOBIN 24.9 pg (27.0-33.4); MEAN CORPUSCULAR HGB CONC 32.5 g/dL (32.0-36.0); MEAN CORPUSCULAR VOLUME 77 fl (80-97); MONOCYTES % (AUTO) 6.2 % (3-13); PLATELET COUNT 248 10^3/uL (150-450); RED BLOOD COUNT 5.19 10^6/uL (3.72-5.28); RED CELL DISTRIBUTION WIDTH 16.4 % (11.5-14.0); SEGMENTED NEUTROPHILS % (AUTO) 65.3 % (42-78); TOTAL CELLS COUNTED % (AUTO) 100 %; WHITE BLOOD COUNT 9.3 10^3/uL (4.0-10.5)
[2018-12-20 19:31] LABS: APPEARANCE,URINE CLEAR; BILIRUBIN,URINE NEGATIVE (NEGATIVE); COLOR,URINE YELLOW; GLUCOSE, URINE NEGATIVE (NEGATIVE); KETONES,URINE NEGATIVE (NEGATIVE); PROTEIN,URINE NEGATIVE (NEGATIVE); URINE SPECIFIC GRAVITY 1.012; UROBILINOGEN,URINE NEGATIVE mg/dL (<2.0)
[2018-12-20 19:41] LABS: ALBUMIN 4.6 g/dL (3.5-5.0); ALKALINE PHOSPHATASE 552 U/L (38-126); ANION GAP 11 (5-19); ASPARTATE AMINO TRANSFERASE 247 U/L (14-36); BILIRUBIN,DIRECT 0.4 mg/dL (0.0-0.4); BILIRUBIN,TOTAL 0.6 mg/dL (0.2-1.3); BLOOD UREA NITROGEN 12 mg/dL (7-20); CALCIUM 10.2 mg/dL (8.4-10.2); CARBON DIOXIDE 27 mmol/L (22-30); CHLORIDE 103 mmol/L (98-107); GLUCOSE 83 mg/dL (75-110); POTASSIUM 4.6 mmol/L (3.6-5.0); TOTAL PROTEIN 7.4 g/dL (6.3-8.2)
--- NOTE | 2018-12-20 23:51 | ER Document Report ---
ED General - General Chief Complaint: Chest Wall Pain Stated Complaint: RIGHT SIDE AND RIB CAGE PAIN Time Seen by Provider: 12/20/18 18:03 Primary Care Provider: ANUSHA KLEIN MD [Primary Care Provider] - Follow up as needed Mode of Arrival: Ambulatory TRAVEL OUTSIDE OF THE [place] IN LAST 30 DAYS: No - Related Data Allergies/Adverse Reactions: adhesive Allergy (Verified 12/20/18 17:57) prochlorperazine [From Compazine] Allergy (Verified 12/20/18 17:57) Past Medical History - General Information source: Patient - Social History Smoking Status: Never Smoker Chew tobacco use (# tins/day): No Frequency of alcohol use: None Drug Abuse: None Family History: Reviewed & Not Pertinent Patient has suicidal ideation: No Patient has homicidal ideation: No - Past Medical History Cardiac Medical History: Reports: Hx Pulmonary Embolism Pulmonary Medical History: Reports: Hx Asthma Renal/ Medical History: Denies: Hx Peritoneal Dialysis GI Medical History: Reports: Hx Endoscopic Retrograde Cholangio Past Surgical History: Reports: Hx Cholecystectomy - stent in bile duct Physical Exam - Vital signs Vitals: Temp Pulse Resp BP Pulse Ox 98.2 F 117 H 20 132/90 H 100 12/20/18 17:46 12/20/18 17:46 12/20/18 17:46 12/20/18 17:46 12/20/18 17:46 - Notes Notes: Patient presents [facility] department complaining of right upper quadrant pain is been going on for the past week. Is a history of chronic abdominal pain is been here several times in the past. States that she had a gallbladder removed several months ago and had 2 stents placed last one was removed on the end of October. She was seen here the other day her LFTs were slightly elevated and she contacted her aircraft systems repairer and has follow-up on Monday but she felt like she may need another stent. She had a little bit of nausea with this but no vomiting she has had no fevers and no real chest pain or shortness of breath. She says the pain is in the right upper quadrant but to the right lower chest. Pain is different what she had with previous PE is had no urinary symptoms Past medical history includes asthma and PE during her last mental period was December 06 Review of systems all systems were reviewed and acutely negative except as in HPI PHYSICAL EXAMINATION: Vital signs are noted she is in no acute distress he has no noted GENERAL: Well-appearing, well-nourished and in no acute distress. HEAD: Atraumatic, normocephalic. EYES: Pupils equal round and reactive to light, extraocular movements intact, sclera anicteric, conjunctiva are normal. ENT: nares patent, oropharynx clear without exudates. Moist mucous membranes. NECK: Normal range of motion, supple without lymphadenopathy LUNGS: Breath sounds clear to auscultation bilaterally and equal. No wheezes rales or rhonchi. HEART: Regular rate and rhythm without murmurs rate of 88 by me ABDOMEN: Soft, minimally tender in the right upper quadrant but she had no pain when she was distracted rest abdomen is nontender is no percussion tenderness Back reveals no bony tenderness no CVA tenderness EXTREMITIES: Normal range of motion, no pitting or edema. Palpable cords NEUROLOGICAL: No focal neurological deficits. Moves all extremities spontaneously and on command. PSYCH: Normal mood, normal affect. SKIN: Warm, Dry, normal turgor, no rashes or lesions noted. Course - Re-evaluation Re-evalutation: 12/20/18 23:50 Medical decision making patient presents with persistent right upper quadrant pain of unclear etiology her LFTs have improved abdomen her alk phos was slightly elevated ultrasound is unremarkable she has a normal white count she looks well can be discharged home she will be treated with Zofran and ketorolac bland diet the chest pain is clearly referred from the right upper quadrant she is not tachypneic she has good O2 sats heart rate is normal now there is no evidence of this time to suggest PE - Vital Signs Vital signs: Temp Pulse Resp BP Pulse Ox 98.2 F 117 H 20 132/90 H 100 12/20/18 17:46 12/20/18 17:46 12/20/18 17:46 12/20/18 17:46 12/20/18 17:46 - Laboratory Result Diagrams: 12/20/18 19:10 12/20/18 19:10 Laboratory results interpreted by me: 12/20/18 12/20/18 12/20/18 18:54 19:10 19:10 MCV 77 L MCH 24.9 L RDW 16.4 H AST 247 H Alkaline Phosphatase 552 H Leukocyte Esterase Rfl SMALL H 12/20/18 23:49 Labs were reviewed her LFTs have actually improved from last week with the AST going down ALT going down [place] slightly increased but bilirubin is normal and lipase was normal urine with no signs of dehydration - Diagnostic Test Radiology reviewed: Reports reviewed Discharge - Discharge Clinical Impression: Abdominal pain Condition: Good Disposition: HOME, SELF-CARE Instructions: Abdominal Pain ([facility]), Anti-Inflammatory Medication ([facility]) Additional Instructions: Please review the discharge instructions. Drink plenty of fluids. Stay on a bland diet avoiding fatty greasy foods make sure you keep your follow-up appointment with your aircraft systems repairer next week return for persistent vomiting or fever return to the ED if you get worse Prescriptions: Ketorolac Tromethamine [Toradol 10 mg Tablet] 10 mg PO Q6HP PRN #15 tablet PRN Reason: Ondansetron [Zofran Odt 4 mg Tablet] 1 tab PO Q4H PRN #15 tab.rapdis PRN Reason: For Nausea/Vomiting Referrals: ANUSHA KLEIN MD [Primary Care Provider] - Follow up as needed
[2018-12-21 00:16] VITALS: BP 123/73
== END 2018-12-21 00:16 | disposition home or self-care (01) ==
LOC: ER 17:28
DX: R10.9 Unspecified abdominal pain (principal); R07.89 Other chest pain; R07.81 Pleurodynia; Z86.711 Personal history of pulmonary embolism; Z90.49 Acquired absence of other specified parts of digestive tract
CPT/HCPCS: 36415; 76705; 80053; 81001; 81025; 83690; 85025; 87086; 87088; 99284

== ENCOUNTER → 2018-12-21 | Outpatient (CLI) | payer BC ==
[2018-12-21 10:17] LABS: ALBUMIN 4.5 g/dL (3.5-5.0); ALKALINE PHOSPHATASE 469 U/L (38-126); ANION GAP 14 (5-19); ASPARTATE AMINO TRANSFERASE 107 U/L (14-36); BILIRUBIN,DIRECT 0.3 mg/dL (0.0-0.4); BILIRUBIN,TOTAL 0.7 mg/dL (0.2-1.3); BLOOD UREA NITROGEN 14 mg/dL (7-20); CALCIUM 10.1 mg/dL (8.4-10.2); CARBON DIOXIDE 24 mmol/L (22-30); CHLORIDE 104 mmol/L (98-107); GLUCOSE 114 mg/dL (75-110); TOTAL PROTEIN 7.3 g/dL (6.3-8.2)
== END ==
LOC: OD 08:55
PROVIDERS: ATTEND Internal Medicine
DX: K80.50 Calculus of bile duct without cholangitis or cholecystitis without obstruction (principal)
CPT/HCPCS: 36415; 80053

== ENCOUNTER 2018-12-25 18:28 | Inpatient (IN) | payer BC ==
[2018-12-25] MEDS ORDERED: KETOROLAC TROMETHAMINE INJ/PF 30 MG/1 ML SDV IV ONE (18:43)
--- NOTE | 2018-12-25 18:45 | ER Document Report ---
ED Medical Screen (RME) - General Chief Complaint: Abdominal Pain Stated Complaint: ABDOMINAL PAIN Time Seen by Provider: 12/25/18 18:40 Primary Care Provider: ROSALINO LE MD [Primary Care Provider] - Follow up as needed Mode of Arrival: Ambulatory Information source: Patient Notes: 28-year-old female presents to the emergency department with complaints of abdominal pain. Patient has a history of at least 5 ERCPs since May. She reports she had a ERCP this morning in [place]. Reports she has a history of pancreatitis due to her problems and feels just like the same. She does not have any nausea at this time because they put a patch behind her left ear. Patient very emotional tearful. I have greeted and performed a rapid initial assessment of this patient. A comprehensive ED assessment and evaluation of the patient, analysis of test results and completion of the medical decision making process will be conducted by additional ED providers. Dictation of this chart was performed using voice recognition software; therefore, there may be some unintended grammatical errors. TRAVEL OUTSIDE OF THE [place] IN LAST 30 DAYS: No - Related Data Allergies/Adverse Reactions: adhesive Allergy (Verified 12/20/18 17:57) prochlorperazine [From Compazine] Allergy (Verified 12/20/18 17:57) Past Medical History - Past Medical History Cardiac Medical History: Reports: Hx Pulmonary Embolism Pulmonary Medical History: Reports: Hx Asthma Renal/ Medical History: Denies: Hx Peritoneal Dialysis GI Medical History: Reports: Hx Endoscopic Retrograde Cholangio Past Surgical History: Reports: Hx Cholecystectomy - stent in bile duct Physical Exam - Vital signs Vitals: Temp Pulse Resp BP Pulse Ox 98.4 F 119 H 15 155/105 H 98 12/25/18 18:37 12/25/18 18:37 12/25/18 18:37 12/25/18 18:37 12/25/18 18:37 Course - Vital Signs Vital signs: Temp Pulse Resp BP Pulse Ox 98.4 F 119 H 15 155/105 H 98 12/25/18 18:37 12/25/18 18:37 12/25/18 18:37 12/25/18 18:37 12/25/18 18:37 Doctor's Discharge - Discharge Referrals: ROSALINO LE MD [Primary Care Provider] - Follow up as needed
[2018-12-25 19:50] LABS: ABSOLUTE BASOPHILS # (AUTO) 0.1 10^3/uL (0.0-0.2); ABSOLUTE EOSINOPHILS # (AUTO) 0.2 10^3/uL (0.0-0.6); ABSOLUTE MONOCYTES (AUTO) 0.5 10^3/uL (0.1-1.4); BASOPHILS % (AUTO) 0.7 % (0-2); EOSINOPHILS % (AUTO) 1.7 % (0-6); HEMATOCRIT 36.8 % (36.0-47.0); HEMOGLOBIN 12.4 g/dL (12.0-15.5); LYMPHOCYTES % (AUTO) 20.6 % (13-45); MEAN CORPUSCULAR HEMOGLOBIN 26.1 pg (27.0-33.4); MEAN CORPUSCULAR HGB CONC 33.7 g/dL (32.0-36.0); MEAN CORPUSCULAR VOLUME 78 fl (80-97); MONOCYTES % (AUTO) 5.5 % (3-13); PLATELET COUNT 235 10^3/uL (150-450); RED BLOOD COUNT 4.75 10^6/uL (3.72-5.28); RED CELL DISTRIBUTION WIDTH 16.8 % (11.5-14.0); SEGMENTED NEUTROPHILS % (AUTO) 71.5 % (42-78); TOTAL CELLS COUNTED % (AUTO) 100 %; WHITE BLOOD COUNT 9.8 10^3/uL (4.0-10.5)
--- NOTE | 2018-12-25 20:07 | ER Document Report ---
ED GI/ - General Chief Complaint: Abdominal Pain Stated Complaint: ABDOMINAL PAIN Time Seen by Provider: 12/25/18 20:07 Primary Care Provider: ROSALINO LE MD [NO LOCAL MD] - Follow up as needed Mode of Arrival: Ambulatory Information source: Patient Notes: HISTORY OF PRESENT ILLNESS: Patient is a 28-year-old female with a past medical history of cholecystectomy with resulting biliary stricture status post biliary stent with recent ERCP the morning of presentation for this encounter who presents with recurrent abdominal pain. Patient reports that she has had acute pancreatitis following ERCP in the past, this feels identical. Pain is an aching and sharp sensation in the epigastric area that radiates to the back, associated with nausea, denies fevers or chills, no other symptoms. Patient reports the only medication that worked last time "was Dilaudid." Location: Epigastric Onset: Today Alleviation: None Provocation: Admit Quality: Aching, sharp Radiation: Back Severity: Severe at worst, currently moderate Timing: Constant History of abdominal surgery: Yes Associated symptoms: Denies fevers or chills, no cough or congestion, mild nausea but no vomiting Last bowel movement: Today and normal Last menstrual period: This month and normal REVIEW OF SYSTEMS: CONSTITUTIONAL : Denies fever or chills, no sweats. Denies recent illness. EENT: Denies eye, ear, throat, or mouth pain or symptoms. Denies nasal or sinus congestion. CARDIOVASCULAR: Denies chest pain. Denies swelling of the legs. RESPIRATORY: Denies cough, cold, or chest congestion. Denies shortness of breath or difficulty breathing. Denies wheezing. GASTROINTESTINAL: Positive for abdominal pain. Visit for nausea but no vomiting or diarrhea. Denies constipation. GENITOURINARY: Denies difficulty urinating, painful urination, burning, frequency, or blood in urine. FEMALE GENITOURINARY: Denies vaginal bleeding, abnormal or irregular periods. MUSCULOSKELETAL: Denies neck or back pain or joint pain or swelling. SKIN: Denies rash or skin lesions. HEMATOLOGIC : Denies easy bruising or bleeding. LYMPHATIC: Denies swollen, enlarged glands. NEUROLOGICAL: Denies altered mental status or loss of consciousness. Denies headache. Denies weakness or paralysis or loss of use of either side. Denies problems with gait or speech. Denies sensory or motor loss. PSYCHIATRIC: Denies anxiety or stress or depression. All other systems reviewed and negative. PHYSICAL EXAMINATION: GENERAL: Well-appearing, well-nourished and in no acute distress. HEAD: Atraumatic, normocephalic. No scalp deformity, depression, or crepitance. EYES: Pupils are 3 mm and equal/round/reactive to light, extraocular movements intact, sclera anicteric, conjunctiva are normal. ENT: Nares patent bilaterally, oropharynx. Moist mucous membranes. No tonsil hypertrophy. NECK: Normal range of motion, supple without lymphadenopathy. LUNGS: Breath sounds present, equal, and clear to auscultation bilaterally. No wheezes, rales, or rhonchi. HEART: Regular rate and rhythm without murmurs, rubs, or gallops. 2+ peripheral pulses. Normal capillary refill. ABDOMEN: Soft, moderate tenderness in the epigastric area, nondistended. Normoactive bowel sounds. No guarding, no rebound. No masses appreciated. BACK: Normal contour, no midline tenderness. Rectal exam deferred. GENITAL/PELVIC: Deferred. EXTREMITIES: Normal range of motion, no pitting or edema. No cyanosis. NEUROLOGICAL: No focal neurological deficits. Moves all extremities spontaneously and on command. PSYCH: Normal mood, normal affect. No suicidal thoughts/ideations. No homicidal thoughts/ideations. No hallucinations. SKIN: Warm, dry, normal turgor, no rashes or lesions noted. ASSESSMENT AND PLAN: This patient is a 28-year-old female who presents with acute on chronic abdominal pain following ERCP this morning for biliary stent placement at outside hospital. Concern for migration of stent versus pancreatitis versus chronic abdominal pain. 1. Will obtain labs, urine, and CT scan of the abdomen/pelvis. 2. Will give IV fluids with morphine for pain control. TRAVEL OUTSIDE OF THE [place] IN LAST 30 DAYS: No - HPI Patient complains to provider of: Abdominal pain Onset: This afternoon Timing/Duration: Sudden Quality of pain: Achy, Cramping Severity at maximum: Severe Severity in ED: Moderate Pain Level: 3 Context: Other - Recent ERCP earlier today in [place], [place] Location: Epigastric Vaginal bleeding (Compared to normal period): None Sexual history: Active Associated symptoms: None Exacerbated by: Movement Relieved by: Denies Similar symptoms previously: Yes Recently seen / treated by doctor: Yes - Related Data Allergies/Adverse Reactions: adhesive Allergy (Verified 12/20/18 17:57) prochlorperazine [From Compazine] Allergy (Verified 12/20/18 17:57) Home Medications: Ativan, atarax, prilosec Past Medical History - General Information source: Patient - Social History Smoking Status: Never Smoker Chew tobacco use (# tins/day): No Frequency of alcohol use: None Drug Abuse: None Lives with: Family Family History: Reviewed & Not Pertinent Patient has suicidal ideation: No Patient has homicidal ideation: No - Past Medical History Cardiac Medical History: Reports: Hx Pulmonary Embolism Pulmonary Medical History: Reports: Hx Asthma EENT Medical History: Reports: None Neurological Medical History: Reports: None Endocrine Medical History: Reports: None Renal/ Medical History: Reports: None. Denies: Hx Peritoneal Dialysis Malignancy Medical History: Reports: None GI Medical History: Reports: Hx Pancreatitis, Hx Endoscopic Retrograde Cholangio Musculoskeletal Medical History: Reports None Skin Medical History: Reports None Psychiatric Medical History: Reports: None Traumatic Medical History: Reports: None Infectious Medical History: Reports: None Past Surgical History: Reports: Hx Cholecystectomy - stent in bile duct - Immunizations Immunizations up to date: Yes Hx Diphtheria, Pertussis, Tetanus Vaccination: Yes Review of Systems - Review of Systems Constitutional: No symptoms reported EENT: No symptoms reported Cardiovascular: No symptoms reported Respiratory: No symptoms reported Gastrointestinal: See HPI, Abdominal pain Genitourinary: No symptoms reported Female Genitourinary: No symptoms reported Musculoskeletal: No symptoms reported Skin: No symptoms reported Hematologic/Lymphatic: No symptoms reported Neurological/Psychological: No symptoms reported -: Yes All other systems reviewed and negative Physical Exam - Vital signs Vitals: Temp Pulse Resp BP Pulse Ox 98.4 F 119 H 15 155/105 H 98 12/25/18 18:37 12/25/18 18:37 12/25/18 18:37 12/25/18 18:37 12/25/18 18:37 Interpretation: Normal Course - Re-evaluation Re-evalutation: 12/26/18 01:08 Blood work reveals lipase of approximately 27,[address] scan of the abdomen/pelvis that supports mild to moderate pancreatitis, there is no mention of migration of biliary stent or evidence of hepatic stasis. Patient has been accepted in transfer to outside hospital. - Vital Signs Vital signs: Temp Pulse Resp BP Pulse Ox 98.3 F 84 16 120/54 L 100 12/26/18 03:02 12/26/18 03:02 12/26/18 03:02 12/26/18 03:02 12/26/18 03:02 - Laboratory Result Diagrams: 12/25/18 19:15 12/25/18 19:15 Laboratory results interpreted by me: 12/25/18 12/25/18 12/25/18 19:15 19:15 22:40 MCV 78 L MCH 26.1 L RDW 16.8 H AST 153 H Alkaline Phosphatase 482 H Amylase 2399 H Lipase 01107.6 H Ur Leukocyte Esterase LARGE H - Diagnostic Test Radiology reviewed: Image reviewed, Reports reviewed - Consults Dr. Pandey Time consulted: 23:37 - recommends transfer back to [facility] Dr. Campbell ([facility]) Time consulted: 00:35 - admission to hospitalist Consulted provider: will see as inpatient Dr. Jones ([facility] hospitalist) Time consulted: 01:07 - will accept in transfer Discharge - Discharge Clinical Impression: Acute pancreatitis Qualifiers: Pancreatitis type: other Acute pancreatitis complication: unspecified Qualified Code(s): K85.80 - Other acute pancreatitis without necrosis or infection Abdominal pain Qualifiers: Abdominal location: epigastric Qualified Code(s): R10.13 - Epigastric pain Condition: Stable Disposition: [facility] Referrals: ROSALINO LE MD [NO LOCAL MD] - Follow up as needed
[2018-12-25 20:19] LABS: ALKALINE PHOSPHATASE 482 U/L (38-126); ANION GAP 8 (5-19); ASPARTATE AMINO TRANSFERASE 153 U/L (14-36); BILIRUBIN,DIRECT 0.2 mg/dL (0.0-0.4); BILIRUBIN,TOTAL 0.7 mg/dL (0.2-1.3); BLOOD UREA NITROGEN 9 mg/dL (7-20); CALCIUM 9.6 mg/dL (8.4-10.2); CARBON DIOXIDE 27 mmol/L (22-30); CHLORIDE 104 mmol/L (98-107); GLUCOSE 97 mg/dL (75-110); POTASSIUM 4.1 mmol/L (3.6-5.0); TOTAL PROTEIN 6.5 g/dL (6.3-8.2)
[2018-12-25 20:34] LABS: AMYLASE 2399 U/L (30-110)
[2018-12-25] MEDS ORDERED: ONDANSETRON HCL INJ/PF 4 MG/2 ML SDV IV ONE (21:08)
[2018-12-25] MEDS ORDERED: MORPHINE SULFATE 10 MG/ML INJ IV ONE ×2 (21:08→22:50)
--- NOTE | 2018-12-25 23:08 | RADIOLOGY REPORT (SQ) ---
EXAM DESCRIPTION: CT ABDOMEN PELVIS WITH IV CONTRAST COMPLETED DATE/TME: 12/25/2018 21:08 CLINICAL HISTORY: 28 years, Female, EPIGASTRIC,RUQ R side/mid back pain. reports having ERCP this A.M. This exam was performed according to our departmental dose-optimization program which includes automated exposure control, adjustment of the mA and/or kVp according to patient size and/or use of iterative reconstruction technique where applicable. FINDINGS: Visualized lung bases are within normal limits. Liver, spleen, adrenal glands and kidneys are within normal limits. No hydronephrosis. Pancreas demonstrates mild diffuse inflammation and mild ill-defined fluid in the upper abdomen and retroperitoneum consistent with pancreatitis. No significant fluid collections. Biliary plastic stent is in place. Status post cholecystectomy. Pancreas appears to enhance within normal limits. No dilated loops of bowel to suggest obstruction. Mild amount of stool in the colon. The appendix is normal. No free fluid or free air. Bladder is unremarkable. Gynecologic organs are unremarkable. No abdominal or pelvic lymphadenopathy. Abdominal aorta is within normal limits. IMPRESSION: Moderate findings of pancreatitis with ill-defined fluid. No significant fluid collections.
[2018-12-25 23:12] LABS: APPEARANCE,URINE CLEAR; BILIRUBIN,URINE NEGATIVE (NEGATIVE); COLOR,URINE STRAW; GLUCOSE, URINE NEGATIVE (NEGATIVE); KETONES,URINE NEGATIVE (NEGATIVE); LEUKOCYTE ESTERASE,URINE LARGE (NEGATIVE); NITRITE,URINE NEGATIVE (NEGATIVE); PROTEIN,URINE NEGATIVE (NEGATIVE); URINE SPECIFIC GRAVITY 1.016; UROBILINOGEN,URINE NEGATIVE mg/dL (<2.0)
[2018-12-26] MEDS ORDERED: NORMAL SALINE 1000 ML 1,000 ML IV ONE (00:35)
[2018-12-26] MEDS ORDERED: FENTANYL CITRATE INJ/PF 100 MCG/2 ML AMPUL IV ONE (00:36)
[2018-12-26] MEDS ORDERED: MORPHINE SULFATE 10 MG/ML INJ IV ONE ×3 (02:23→08:08)
--- NOTE | 2018-12-26 09:04 | PDOC H&P ---
History of Present Illness Admission Date/PCP: 12/26/2018 JUANA HENSLEY MD Patient complains of: Abdominal pain, nausea vomiting History of Present Illness: LÓPEZ ALFONSO is a 28 year old female presents with a history of cholecystectomy with resulting biliary stricture and status post biliary stent with recent ERCP and acute onset pancreatitis. Patient states his abdominal pain is achy and sharp in sensation over the epigastric region. Patient had no treatment prior to arrival all intact aggravating factor. Past Medical History Cardiac Medical History: Reports: Pulmonary Embolism Pulmonary Medical History: Reports: Asthma EENT Medical History: Reports: None Neurological Medical History: Reports: None Endocrine Medical History: Reports: None Renal/ Medical History: Reports: None Malignancy Medical History: Reports: None Musculoskeltal Medical History: Reports: None Skin Medical History: Reports: None Psychiatric Medical History: Reports: None Traumatic Medical History: Reports: None Infectious Medical History: Reports: None Past Surgical History Past Surgical History: Reports: Cholecystectomy - stent in bile duct Social History Information Source: Patient Lives with: Family Smoking Status: Never Smoker Frequency of Alcohol Use: Rare Hx Recreational Drug Use: No Drugs: None Hx Prescription Drug Abuse: No - Advance Directive Resuscitation Status: Full Code Family History Family History: CAD, Other - Anxiety Parental Family History Reviewed: Yes Children Family History Reviewed: Yes Sibling(s) Family History Reviewed.: Yes Medication/Allergy Home Medications: Metoclopramide HCl [Reglan] 10 mg PO Q6HP PRN #20 tablet 10/08/18 Dicyclomine HCl [Bentyl 20 mg Tablet] 20 mg PO QID PRN #20 tablet 11/25/18 Esomeprazole Mag Trihydrate [Nexium] 40 mg PO DAILY 30 Days #30 capsule. 11/25/18 Omeprazole 20 mg PO DAILY #30 tablet. 12/17/18 Sucralfate [Carafate] 1 gm PO BID #100 ml 12/17/18 Ketorolac Tromethamine [Toradol 10 mg Tablet] 10 mg PO Q6HP PRN #15 tablet 12/20/18 Ondansetron [Zofran Odt 4 mg Tablet] 1 tab PO Q4H PRN #15 tab.rapdis 12/20/18 Allergies/Adverse Reactions: adhesive Allergy (Verified 12/20/18 17:57) prochlorperazine [From Compazine] Allergy (Verified 12/20/18 17:57) Review of Systems Constitutional: ABSENT: chills, fever(s), headache(s), weight gain, weight loss Eyes: ABSENT: visual disturbances Ears: ABSENT: hearing changes Cardiovascular: ABSENT: chest pain, dyspnea on exertion, edema, orthropnea, palpitations Respiratory: ABSENT: cough, hemoptysis Gastrointestinal: PRESENT: abdominal pain, nausea, vomiting. ABSENT: constipation, diarrhea, hematemesis, hematochezia Genitourinary: ABSENT: dysuria, hematuria Musculoskeletal: ABSENT: joint swelling Integumentary: ABSENT: rash, wounds Neurological: ABSENT: abnormal gait, abnormal speech, confusion, dizziness, focal weakness, syncope Psychiatric: ABSENT: anxiety, depression, homidical ideation, suicidal ideation Endocrine: ABSENT: cold intolerance, heat intolerance, polydipsia, polyuria Hematologic/Lymphatic: ABSENT: easy bleeding, easy bruising Physical Exam Vital Signs: Temp Pulse Resp BP Pulse Ox 98.4 F 80 18 124/64 99 12/26/18 08:00 12/26/18 08:00 12/26/18 08:00 12/26/18 08:00 12/26/18 08:00 Intake & Output 12/25/18 12/26/18 12/27/18 06:59 06:59 06:59 Intake Total 1000 Balance 1000 Weight 103.8 kg General appearance: PRESENT: no acute distress, well-developed, well-nourished Head exam: PRESENT: atraumatic, normocephalic Eye exam: PRESENT: conjunctiva pink, EOMI, PERRLA. ABSENT: scleral icterus Ear exam: PRESENT: normal external ear exam Mouth exam: PRESENT: moist, tongue midline Neck exam: ABSENT: carotid bruit, JVD, lymphadenopathy, thyromegaly Respiratory exam: PRESENT: clear to auscultation bobby. ABSENT: rales, rhonchi, wheezes Cardiovascular exam: PRESENT: RRR. ABSENT: diastolic murmur, rubs, systolic murmur Pulses: PRESENT: normal dorsalis pedis pul Vascular exam: PRESENT: normal capillary refill GI/Abdominal exam: PRESENT: normal bowel sounds, soft. ABSENT: distended, guarding, mass, organolmegaly, rebound, tenderness Rectal exam: PRESENT: deferred Extremities exam: PRESENT: full ROM. ABSENT: calf tenderness, clubbing, pedal edema Neurological exam: PRESENT: alert, awake, oriented to person, oriented to place, oriented to time, oriented to situation, CN II-XII grossly intact. ABSENT: motor sensory deficit Psychiatric exam: PRESENT: appropriate affect, normal mood. ABSENT: homicidal ideation, suicidal ideation Skin exam: PRESENT: dry, intact, warm. ABSENT: cyanosis, rash Results Laboratory Results: 12/25/18 19:15 12/25/18 19:15 12/25/18 12/25/18 12/25/18 19:15 19:15 22:40 WBC 9.8 RBC 4.75 Hgb 12.4 Hct 36.8 MCV 78 L MCH 26.1 L MCHC 33.7 RDW 16.8 H Plt Count 235 Seg Neutrophils % 71.5 Sodium 138.8 Potassium 4.1 Chloride 104 Carbon Dioxide 27 Anion Gap 8 BUN 9 Creatinine 0.70 Est GFR ( Amer) > 60 Glucose 97 Calcium 9.6 Total Bilirubin 0.7 AST 153 H Alkaline Phosphatase 482 H Total Protein 6.5 Albumin 4.0 Amylase 2399 H Lipase 56988.6 H Urine Color STRAW Urine Appearance CLEAR Urine pH 8.0 Ur Specific [place] 1.016 Urine Protein NEGATIVE Urine Glucose (UA) NEGATIVE Urine Ketones NEGATIVE Urine Blood NEGATIVE Urine Nitrite NEGATIVE Ur Leukocyte Esterase LARGE H Urine WBC (Auto) 19 Urine RBC (Auto) 0 Impressions: Abdomen/Pelvis CT 12/25/18 21:08 IMPRESSION: Moderate findings of pancreatitis with ill-defined fluid. No significant fluid collections. Assessment and Plan - Diagnosis (1) Acute pancreatitis Qualifiers: Pancreatitis type: other Acute pancreatitis complication: unspecified Qualified Code(s): K85.80 - Other acute pancreatitis without necrosis or infection Is this a current diagnosis for this admission?: Yes Plan: 12/26/2018-admit to IMCU. Normal saline at 250 mL an hour. N.p.o. Dilaudid 1 mg IV every 2 hours as needed pain. Will repeat lipase in the a.m. (2) UTI (urinary tract infection) Is this a current diagnosis for this admission?: Yes Plan: 12/26/2018-urine culture. Rocephin 1 g IV daily. (3) Abdominal pain Qualifiers: Abdominal location: epigastric Qualified Code(s): R10.13 - Epigastric pain Is this a current diagnosis for this admission?: Yes Plan: 12/26/2018-Dilaudid 1 mg IV every 2 hours as needed pain (4) Nausea & vomiting Is this a current diagnosis for this admission?: Yes Plan: 12/26/2018-Zofran 4 mg IV every 8 hours as needed - Time Time Spent with patient: 35 or more minutes - Inpatient Certification Based on my medical assessment, after consideration of the patient's comorbidities, presenting symptoms, or acuity I expect that the services needed warrant INPATIENT care.: Yes I certify that my determination is in accordance with my understanding of Medicare's requirements for reasonable and necessary INPATIENT services [42 CFR 412.3e].: Yes Medical Necessity: Need For IV Fluids, Need for Pain Control, Need for IV Antibiotics
[2018-12-26] MEDS: CEFTRIAXONE 1 GM/D5W RTU 1 GM/50 ML RTUPB IV SCH (09:53)
[2018-12-26] MEDS: NORMAL SALINE 1000 ML 1,000 ML IV PRN ×3 (09:55→23:01)
[2018-12-26] MEDS: HYDROMORPHONE HCL INJ/PF 2 MG/ML AMPULE IV PRN ×5 (10:05→21:10)
[2018-12-26] MEDS ORDERED: DIPHENHYDRAMINE HCL 50 MG/ML VIAL IV ONE (12:10)
[2018-12-26] MEDS: ONDANSETRON HCL INJ/PF 4 MG/2 ML SDV IV PRN (13:00)
[2018-12-26] MEDS ORDERED: ACETAMINOPHEN 1,000 MG/100 ML RTUPB IV ONE (17:00)
[2018-12-27] MEDS: HYDROMORPHONE HCL INJ/PF 2 MG/ML AMPULE IV PRN ×7 (01:02→21:23)
[2018-12-27] MEDS: NORMAL SALINE 1000 ML 1,000 ML IV PRN ×3 (03:07→13:51)
[2018-12-27] MEDS ORDERED: ACETAMINOPHEN 650 MG SUPP.RECT PR PRN (03:22)
[2018-12-27] MEDS: DIPHENHYDRAMINE HCL 50 MG/ML VIAL IV PRN ×2 (06:00→23:08)
[2018-12-27 06:04] LABS: HEMATOCRIT 32.9 % (36.0-47.0); HEMOGLOBIN 10.8 g/dL (12.0-15.5); MEAN CORPUSCULAR HEMOGLOBIN 25.4 pg (27.0-33.4); MEAN CORPUSCULAR HGB CONC 32.8 g/dL (32.0-36.0); MEAN CORPUSCULAR VOLUME 78 fl (80-97); PLATELET COUNT 194 10^3/uL (150-450); RED BLOOD COUNT 4.24 10^6/uL (3.72-5.28); RED CELL DISTRIBUTION WIDTH 16.1 % (11.5-14.0); WHITE BLOOD COUNT 6.6 10^3/uL (4.0-10.5)
[2018-12-27 06:36] LABS: PHOSPHORUS 3.8 mg/dL (2.5-4.5)
[2018-12-27 07:03] LABS: ANION GAP 8 (5-19); BLOOD UREA NITROGEN 5 mg/dL (7-20); CALCIUM 8.8 mg/dL (8.4-10.2); CARBON DIOXIDE 24 mmol/L (22-30); CHLORIDE 107 mmol/L (98-107); GLUCOSE 82 mg/dL (75-110); POTASSIUM 3.8 mmol/L (3.6-5.0)
[2018-12-27] MEDS: CEFTRIAXONE 1 GM/D5W RTU 1 GM/50 ML RTUPB IV SCH (09:04)
[2018-12-27] MEDS: ONDANSETRON HCL INJ/PF 4 MG/2 ML SDV IV PRN ×2 (09:12→18:50)
--- NOTE | 2018-12-27 09:22 | PDOC CRITICAL CARE PROG REPORT ---
Physical Exam Vital Signs: Temp Pulse Resp BP Pulse Ox 98.4 F 78 16 120/58 L 97 12/27/18 03:29 12/27/18 03:29 12/27/18 03:29 12/27/18 03:29 12/27/18 03:29 Intake & Output 12/25/18 12/26/18 12/27/18 11:59 11:59 11:59 Intake Total 1050 4000 Output Total 0 Balance 1050 4000 Weight 103.8 kg 103.8 kg Weight/Height Weight 103.8 kg Height 5 ft 7 in Laboratory/Radiographs Laboratory Results: 12/27/18 05:42 12/27/18 05:42 12/27/18 12/27/18 12/27/18 05:42 05:42 05:42 WBC 6.6 RBC 4.24 Hgb 10.8 L Hct 32.9 L MCV 78 L MCH 25.4 L MCHC 32.8 RDW 16.1 H Plt Count 194 Sodium 139.0 Potassium 3.8 Chloride 107 Carbon Dioxide 24 Anion Gap 8 BUN 5 L Creatinine 0.55 Est GFR ( Amer) > 60 Glucose 82 Calcium 8.8 Phosphorus 3.8 Magnesium 1.8 Lipase 3730.4 H Impressions: Abdomen/Pelvis CT 12/25/18 21:08 IMPRESSION: Moderate findings of pancreatitis with ill-defined fluid. No significant fluid collections. Critical Time -: 1. The care of a critical patient is a dynamic process. This note is a r epresentative synopsis but static in nature. The timeframe for treatments given in order is not necessary the actual time these treatments may have been done. 2. This patient requires critical care secondary to ongoing requirements for therapy not offered or safe outside the critical care environment. Transfer to a lower level of care with altered life or limb morbidity and mortality. 3. Multidisciplinary rounds completed. 4. ABCDE bundle addressed.
--- NOTE | 2018-12-27 12:38 | PDOC PROGRESS REPORT ---
Subjective Progress Note for:: 12/27/18 Subjective:: 12/27/2018-continued headache Reason For Visit: POST ERCP PANCREATITIS Physical Exam Vital Signs: Temp Pulse Resp BP Pulse Ox 98.4 F 82 16 110/61 100 12/27/18 07:54 12/27/18 07:54 12/27/18 07:54 12/27/18 07:54 12/27/18 07:54 Intake & Output 12/26/18 12/27/18 12/28/18 06:59 06:59 06:59 Intake Total 1000 3305 795 Output Total 0 Balance 1000 3305 795 Weight 103.8 kg 103.8 kg General appearance: PRESENT: no acute distress, well-developed, well-nourished Head exam: PRESENT: atraumatic, normocephalic Eye exam: PRESENT: conjunctiva pink, EOMI, PERRLA. ABSENT: scleral icterus Ear exam: PRESENT: normal external ear exam Mouth exam: PRESENT: moist, tongue midline Neck exam: ABSENT: carotid bruit, JVD, lymphadenopathy, thyromegaly Respiratory exam: PRESENT: clear to auscultation bobby. ABSENT: rales, rhonchi, wheezes Cardiovascular exam: PRESENT: RRR. ABSENT: diastolic murmur, rubs, systolic murmur Pulses: PRESENT: normal dorsalis pedis pul Vascular exam: PRESENT: normal capillary refill GI/Abdominal exam: PRESENT: normal bowel sounds, soft, tenderness. ABSENT: distended, guarding, mass, organolmegaly, rebound Rectal exam: PRESENT: deferred Extremities exam: PRESENT: full ROM. ABSENT: calf tenderness, clubbing, pedal edema Neurological exam: PRESENT: alert, awake, oriented to person, oriented to place, oriented to time, oriented to situation, CN II-XII grossly intact. ABSENT: motor sensory deficit Psychiatric exam: PRESENT: appropriate affect, normal mood. ABSENT: homicidal ideation, suicidal ideation Skin exam: PRESENT: dry, intact, warm. ABSENT: cyanosis, rash Results Laboratory Results: 12/27/18 05:42 12/27/18 05:42 12/27/18 12/27/18 12/27/18 05:42 05:42 05:42 WBC 6.6 RBC 4.24 Hgb 10.8 L Hct 32.9 L MCV 78 L MCH 25.4 L MCHC 32.8 RDW 16.1 H Plt Count 194 Sodium 139.0 Potassium 3.8 Chloride 107 Carbon Dioxide 24 Anion Gap 8 BUN 5 L Creatinine 0.55 Est GFR ( Amer) > 60 Glucose 82 Calcium 8.8 Phosphorus 3.8 Magnesium 1.8 Lipase 3730.4 H Impressions: Abdomen/Pelvis CT 12/25/18 21:08 IMPRESSION: Moderate findings of pancreatitis with ill-defined fluid. No significant fluid collections. Assessment and Plan - Diagnosis (1) Acute pancreatitis Qualifiers: Pancreatitis type: other Acute pancreatitis complication: unspecified Qualified Code(s): K85.80 - Other acute pancreatitis without necrosis or infection Is this a current diagnosis for this admission?: Yes Plan: 12/26/2018-admit to IMCU. Normal saline at 250 mL an hour. N.p.o. Dilaudid 1 mg IV every 2 hours as needed pain. Will repeat lipase in the a.m. 12/27/2018-improved. Patient's lipase down to 3000. Patient states she still has abdominal pain. I will decrease her IV fluids to 100 mL an hour at this time continue n.p.o. status. Continue PRN pain medications repeat lipase in the a.m. and allow her to try a clear liquid diet tomorrow. (2) UTI (urinary tract infection) Is this a current diagnosis for this admission?: Yes Plan: 12/26/2018-urine culture. Rocephin 1 g IV daily. 12 27 2018-await cultures. Continue Rocephin (3) Abdominal pain Qualifiers: Abdominal location: epigastric Qualified Code(s): R10.13 - Epigastric pain Is this a current diagnosis for this admission?: Yes Plan: 12/26/2018-Dilaudid 1 mg IV every 2 hours as needed pain 12/27/2018-improved however she continues to have some abdominal pain at this time. We will continue PRN pain medications reassess in the a.m. most likely will allow clear liquid diet tomorrow (4) Nausea & vomiting Is this a current diagnosis for this admission?: Yes Plan: 12/26/2018-Zofran 4 mg IV every 8 hours as needed 12 27 2018-continue PRN Zofran - Time Time Spent with patient: 15-24 minutes - Inpatient Certification Based on my medical assessment, after consideration of the patient's comorbidities, presenting symptoms, or acuity I expect that the services needed warrant INPATIENT care.: Yes I certify that my determination is in accordance with my understanding of Medicare's requirements for reasonable and necessary INPATIENT services [42 CFR 412.3e].: Yes Medical Necessity: Need For IV Fluids, Need for Pain Control
[2018-12-28] MEDS: NORMAL SALINE 1000 ML 1,000 ML IV PRN (01:14)
[2018-12-28] MEDS: HYDROMORPHONE HCL INJ/PF 2 MG/ML AMPULE IV PRN ×2 (02:01→05:44)
[2018-12-28] MEDS: DIPHENHYDRAMINE HCL 50 MG/ML VIAL IV PRN (05:45)
[2018-12-28 05:55] LABS: HEMOGLOBIN 11.3 g/dL (12.0-15.5); MEAN CORPUSCULAR HEMOGLOBIN 25.5 pg (27.0-33.4); MEAN CORPUSCULAR HGB CONC 33.2 g/dL (32.0-36.0); MEAN CORPUSCULAR VOLUME 77 fl (80-97); PLATELET COUNT 224 10^3/uL (150-450); RED BLOOD COUNT 4.42 10^6/uL (3.72-5.28); RED CELL DISTRIBUTION WIDTH 15.7 % (11.5-14.0); WHITE BLOOD COUNT 8.3 10^3/uL (4.0-10.5)
[2018-12-28 06:59] LABS: ANION GAP 8 (5-19); BLOOD UREA NITROGEN 6 mg/dL (7-20); CALCIUM 9.2 mg/dL (8.4-10.2); CARBON DIOXIDE 25 mmol/L (22-30); CHLORIDE 108 mmol/L (98-107); GLUCOSE 110 mg/dL (75-110); POTASSIUM 4.1 mmol/L (3.6-5.0)
--- NOTE | 2018-12-28 08:25 | PDOC DISCHARGE SUMMARY ---
Impression - Admit/DC Date/PCP Admission Date/Primary Care Provider: 12/26/18 09:05 JUANA HENSLEY MD Discharge Date: 12/28/18 - Discharge Diagnosis (1) Acute pancreatitis Is this a current diagnosis for this admission?: Yes (2) UTI (urinary tract infection) Is this a current diagnosis for this admission?: Yes (3) Abdominal pain Is this a current diagnosis for this admission?: Yes (4) Nausea & vomiting Is this a current diagnosis for this admission?: Yes - Additional Information Resuscitation Status: Full Code Discharge Diet: As Tolerated Discharge Activity: Activity As Tolerated Referrals: ROSALINO LE MD [NO LOCAL MD] - Follow up as needed Prescriptions: Cefuroxime Axetil [Ceftin 500 mg Tablet] 1 tab PO BID #14 tablet Hydrocodone/Acetaminophen [Occidental 5-325 mg Tablet] 1 tab PO TIDP PRN #15 tablet PRN Reason: Home Medications: Omeprazole 20 mg PO DAILY #30 tablet. 12/17/18 Ketorolac Tromethamine [Toradol 10 mg Tablet] 10 mg PO Q6HP PRN #15 tablet MDD FILLED 12/21 FOR 4 DAY SUPPLY 12/20/18 Amitriptyline HCl [Elavil 25 mg Tablet] 50 mg PO QHS 12/26/18 Hydroxyzine Pamoate [Vistaril 25 mg Capsule] 25 mg PO Q6HP PRN 12/26/18 Ondansetron [Zofran Odt 4 mg Tablet] 4 mg PO Q4HP PRN MDD FILLED 12/21 FOR 5 DAY SUPPLY 12/26/18 Cefuroxime Axetil [Ceftin 500 mg Tablet] 1 tab PO BID #14 tablet 12/28/18 Hydrocodone/Acetaminophen [Occidental 5-325 mg Tablet] 1 tab PO TIDP PRN #15 tablet 12/28/18 History of Present Illiness History of Present Illness: LÓPEZ ALFONSO is a 28 year old female presents with a history of cholecystectomy with resulting biliary stricture and status post biliary stent with recent ERCP and acute onset pancreatitis. Patient states his abdominal pain is achy and sharp in sensation over the epigastric region. Patient had no treatment prior to arrival all intact aggravating factor. Hospital Course Hospital Course: Patient presented to ER with ERCP induced acute pancreatitis. Patient placed on IMCU made n.p.o. Patient received IV fluid therapy pain control and medication for nausea vomiting. Over the course time patient has shown significant improvement. Patient's lipase went from 29,000 down to 500. Patient is taking oral intake at this time. Patient will be sent home on Occidental 5/325 mg 1 every 8 hours PRN for pain #15 no refills, she will continue Zofran as needed, and I placed her on Ceftin 5 mg p.o. twice daily x7 days for UTI. Patient will follow-up with her primary care physician within 1 week. Physical Exam Vital Signs: Temp Pulse Resp BP Pulse Ox 98.0 F 75 20 130/57 H 100 12/28/18 07:47 12/28/18 07:47 12/28/18 07:47 12/28/18 07:47 12/28/18 07:47 Intake & Output 12/27/18 12/28/18 12/29/18 06:59 06:59 06:59 Intake Total 3305 1795 Output Total 0 Balance 3305 1795 Weight 103.8 kg 103.3 kg General appearance: PRESENT: no acute distress, well-developed, well-nourished Head exam: PRESENT: atraumatic, normocephalic Eye exam: PRESENT: conjunctiva pink, EOMI, PERRLA. ABSENT: scleral icterus Ear exam: PRESENT: normal external ear exam Mouth exam: PRESENT: moist, tongue midline Neck exam: ABSENT: carotid bruit, JVD, lymphadenopathy, thyromegaly Respiratory exam: PRESENT: clear to auscultation bobby. ABSENT: rales, rhonchi, wheezes Cardiovascular exam: PRESENT: RRR. ABSENT: diastolic murmur, rubs, systolic murmur Pulses: PRESENT: normal dorsalis pedis pul Vascular exam: PRESENT: normal capillary refill GI/Abdominal exam: PRESENT: normal bowel sounds, soft. ABSENT: distended, guarding, mass, organolmegaly, rebound, tenderness Rectal exam: PRESENT: deferred Extremities exam: PRESENT: full ROM. ABSENT: calf tenderness, clubbing, pedal edema Neurological exam: PRESENT: alert, awake, oriented to person, oriented to place, oriented to time, oriented to situation, CN II-XII grossly intact. ABSENT: motor sensory deficit Psychiatric exam: PRESENT: appropriate affect, normal mood. ABSENT: homicidal ideation, suicidal ideation Skin exam: PRESENT: dry, intact, warm. ABSENT: cyanosis, rash Results Laboratory Results: WBC 8.3 10^3/uL (4.0-10.5) 12/28/18 05:23 RBC 4.42 10^6/uL (3.72-5.28) 12/28/18 05:23 Hgb 11.3 g/dL (12.0-15.5) L 12/28/18 05:23 Hct 34.0 % (36.0-47.0) L 12/28/18 05:23 MCV 77 fl (80-97) L 12/28/18 05:23 MCH 25.5 pg (27.0-33.4) L 12/28/18 05:23 MCHC 33.2 g/dL (32.0-36.0) 12/28/18 05:23 RDW 15.7 % (11.5-14.0) H 12/28/18 05:23 Plt Count 224 10^3/uL (150-450) 12/28/18 05:23 Lymph % (Auto) 20.6 % (13-45) 12/25/18 19:15 [place] % (Auto) 5.5 % (3-13) 12/25/18 19:15 Eos % (Auto) 1.7 % (0-6) 12/25/18 19:15 Baso % (Auto) 0.7 % (0-2) 12/25/18 19:15 Absolute Neuts (auto) 7.0 10^3/uL (1.7-8.2) 12/25/18 19:15 Absolute Lymphs (auto) 2.0 10^3/uL (0.5-4.7) 12/25/18 19:15 Absolute Monos (auto) 0.5 10^3/uL (0.1-1.4) 12/25/18 19:15 Absolute Eos (auto) 0.2 10^3/uL (0.0-0.6) 12/25/18 19:15 Absolute Basos (auto) 0.1 10^3/uL (0.0-0.2) 12/25/18 19:15 Seg Neutrophils % 71.5 % (42-78) 12/25/18 19:15 Sodium 140.6 mmol/L (137-145) 12/28/18 05:23 Potassium 4.1 mmol/L (3.6-5.0) 12/28/18 05:23 Chloride 108 mmol/L (98-107) H 12/28/18 05:23 Carbon Dioxide 25 mmol/L (22-30) 12/28/18 05:23 Anion Gap 8 (5-19) 12/28/18 05:23 BUN 6 mg/dL (7-20) L 12/28/18 05:23 Creatinine 0.59 mg/dL (0.52-1.25) 12/28/18 05:23 Est GFR ( Amer) > 60 (>60) 12/28/18 05:23 Est GFR (MDRD) Non-Af > 60 (>60) 12/28/18 05:23 Glucose 110 mg/dL (75-110) 12/28/18 05:23 Calcium 9.2 mg/dL (8.4-10.2) 12/28/18 05:23 Phosphorus 3.8 mg/dL (2.5-4.5) 12/27/18 05:42 Magnesium 1.8 mg/dL (1.6-2.3) 12/27/18 05:42 Total Bilirubin 0.7 mg/dL (0.2-1.3) 12/25/18 19:15 Direct Bilirubin 0.2 mg/dL (0.0-0.4) 12/25/18 19:15 Neonat Total Bilirubin Not Reportable 12/25/18 19:15 Neonat Direct Bilirubin Not Reportable 12/25/18 19:15 Neonat Indirect Bili Not Reportable 12/25/18 19:15 AST 153 U/L (14-36) H 12/25/18 19:15 ALT 386 U/L (<35) 12/25/18 19:15 Alkaline Phosphatase 482 U/L (38-126) H 12/25/18 19:15 Total Protein 6.5 g/dL (6.3-8.2) 12/25/18 19:15 Albumin 4.0 g/dL (3.5-5.0) 12/25/18 19:15 Amylase 2399 U/L (30-110) H 12/25/18 19:15 Lipase 504.0 U/L (23-300) H 12/28/18 05:23 Urine Color STRAW 12/25/18 22:40 Urine Appearance CLEAR 12/25/18 22:40 Urine pH 8.0 (5.0-9.0) 12/25/18 22:40 Ur Specific [place] 1.016 12/25/18 22:40 Urine Protein NEGATIVE mg/dL (NEGATIVE) 12/25/18 22:40 Urine Glucose (UA) NEGATIVE mg/dL (NEGATIVE) 12/25/18 22:40 Urine Ketones NEGATIVE mg/dL (NEGATIVE) 12/25/18 22:40 Urine Blood NEGATIVE (NEGATIVE) 12/25/18 22:40 Urine Nitrite NEGATIVE (NEGATIVE) 12/25/18 22:40 Urine Bilirubin NEGATIVE (NEGATIVE) 12/25/18 22:40 Urine Urobilinogen NEGATIVE mg/dL (<2.0) 12/25/18 22:40 Ur Leukocyte Esterase LARGE (NEGATIVE) H 12/25/18 22:40 Urine WBC (Auto) 19 /HPF 12/25/18 22:40 Urine RBC (Auto) 0 /HPF 12/25/18 22:40 Urine Bacteria (Auto) TRACE /HPF 12/25/18 22:40 Squamous Epi Cells Auto 3 /HPF 12/25/18 22:40 Urine Mucus (Auto) RARE /LPF 12/25/18 22:40 Urine Ascorbic Acid NEGATIVE (NEGATIVE) 12/25/18 22:40 Urine HCG, Qual NEGATIVE (NEGATIVE) 12/25/18 22:40 Impressions: Abdomen/Pelvis CT 12/25/18 21:08 IMPRESSION: Moderate findings of pancreatitis with ill-defined fluid. No significant fluid collections. Plan Time Spent: Greater than 30 Minutes Stroke Is this a Stroke Patient?: No Acute Heart Failure - Is this a Heart Failure Patient?: No
[2018-12-28] MEDS: CEFTRIAXONE 1 GM/D5W RTU 1 GM/50 ML RTUPB IV SCH (10:58)
[2018-12-28 12:39] VITALS: BP 139/69
== END 2018-12-28 13:15 | disposition home or self-care (01) | DRG 439 ==
LOC: ER 18:28 → EH 12-26 09:05 → 3W 12-26 14:41
PROVIDERS: ADMIT Hospitalist; ATTEND Hospitalist
DX: K85.90 Acute pancreatitis without necrosis or infection, unspecified (principal); N39.0 Urinary tract infection, site not specified
CPT/HCPCS: 36415; 74177; 80048; 80053; 81001; 81025; 82150; 83690; 83735; 84100; 85025; 85027; 87086; 96361; 96374; 96375; 96376; 99285; J0131; J0696; J1170; J1200; J2270; J2405; J3010; J3490; J7030

== ENCOUNTER → 2019-01-02 | Outpatient (CLI) | payer BC ==
[2019-01-02 12:54] LABS: ALBUMIN 4.8 g/dL (3.5-5.0); ALKALINE PHOSPHATASE 203 U/L (38-126); ANION GAP 15 (5-19); ASPARTATE AMINO TRANSFERASE 19 U/L (14-36); BILIRUBIN,DIRECT 0.2 mg/dL (0.0-0.4); BILIRUBIN,TOTAL 0.4 mg/dL (0.2-1.3); BLOOD UREA NITROGEN 11 mg/dL (7-20); CALCIUM 10.2 mg/dL (8.4-10.2); CARBON DIOXIDE 22 mmol/L (22-30); CHLORIDE 104 mmol/L (98-107); GLUCOSE 84 mg/dL (75-110); POTASSIUM 4.8 mmol/L (3.6-5.0); TOTAL PROTEIN 7.6 g/dL (6.3-8.2)
== END ==
LOC: OD 11:50
PROVIDERS: ATTEND Internal Medicine
DX: K80.50 Calculus of bile duct without cholangitis or cholecystitis without obstruction (principal)
CPT/HCPCS: 36415; 80053

== ENCOUNTER 2019-01-13 19:07 | Emergency (ER) | payer BC ==
--- NOTE | 2019-01-13 19:29 | ER Document Report ---
ED Medical Screen (RME) - General Chief Complaint: Chest Pain Stated Complaint: CHEST AND BACK PAIN Time Seen by Provider: 01/13/19 19:18 Primary Care Provider: ROSALINO LE MD [Primary Care Provider] - Follow up as needed Notes: Patient is a 28-year-old female who presents to emergency department with a chief complaint of chest pressure. Patient reports around 1230 this afternoon she was laying flat when her 30 pound daughter jumped on her chest. Patient reports she has felt pressure to the chest since then. Patient reports she did vomit once this afternoon. Patient reports she is prescribed Flexeril which she did take and did help some. Patient denies shortness of breath. Patient reports she was just recently diagnosed with pancreatitis and had a stent placed at the end of November. She reports her child did not jump on her abdomen and she does not have any abdominal pain. TRAVEL OUTSIDE OF THE [place] IN LAST 30 DAYS: No - Related Data Allergies/Adverse Reactions: adhesive Allergy (Verified 12/20/18 17:57) prochlorperazine [From Compazine] Allergy (Verified 12/20/18 17:57) Home Medications: atarax. amitripyline. bc pill. flexeril Past Medical History - Social History Chew tobacco use (# tins/day): No Frequency of alcohol use: None Drug Abuse: None - Past Medical History Cardiac Medical History: Reports: Hx Pulmonary Embolism Pulmonary Medical History: Reports: Hx Asthma Renal/ Medical History: Denies: Hx Peritoneal Dialysis GI Medical History: Reports: Hx Pancreatitis, Hx Endoscopic Retrograde Cholangio Past Surgical History: Reports: Hx Cholecystectomy - stent in bile duct - Immunizations Immunizations up to date: Yes Hx Diphtheria, Pertussis, Tetanus Vaccination: Yes Physical Exam - Vital signs Vitals: Temp Pulse Resp BP Pulse Ox 98.2 F 118 H 20 144/114 H 100 01/13/19 19:22 01/13/19 19:22 01/13/19 19:22 01/13/19 19:22 01/13/19 19:22 Course - Re-evaluation Re-evalutation: 01/13/19 19:29 Patient does have reproducible chest wall pain. Patient is tachycardic and hypertensive in triage. Patient is nontoxic-appearing. I have greeted and performed a rapid initial assessment of this patient. A comprehensive ED assessment and evaluation of the patient, analysis of test results and completion of the medical decision making process will be conducted by additional ED providers. - Vital Signs Vital signs: Temp Pulse Resp BP Pulse Ox 98.2 F 118 H 20 144/114 H 100 01/13/19 19:22 01/13/19 19:22 01/13/19 19:22 01/13/19 19:22 01/13/19 19:22 Doctor's Discharge - Discharge Referrals: ROSALINO LE MD [Primary Care Provider] - Follow up as needed
--- NOTE | 2019-01-13 19:49 | RADIOLOGY REPORT (SQ) ---
EXAM DESCRIPTION: CHEST 2 VIEWS COMPLETED DATE/TIME: 01/13/2019 7:34 pm REASON FOR STUDY: chest pressure, daughter jumped on chest COMPARISON: 11/25/2018. EXAM PARAMETERS: NUMBER OF VIEWS: two views TECHNIQUE: Digital Frontal and Lateral radiographic views of the chest acquired. RADIATION DOSE: NA LIMITATIONS: none FINDINGS: LUNGS AND PLEURA: No opacities, masses or pneumothorax. No pleural effusion. MEDIASTINUM AND HILAR STRUCTURES: No masses or contour abnormalities. HEART AND VASCULAR STRUCTURES: Heart normal size. No evidence for failure. BONES: No acute findings. HARDWARE: None in the chest. Hardware in the abdomen. OTHER: No other significant finding. IMPRESSION: NO ACUTE RADIOGRAPHIC FINDING IN THE CHEST. TECHNICAL DOCUMENTATION: JOB ID: [id number] [employer]- All Rights Reserved Reading location - IP/workstation name: [email or web address]
[2019-01-13] MEDS ORDERED: NORMAL SALINE 500 ML IV ONE (20:27)
[2019-01-13] MEDS ORDERED: KETOROLAC TROMETHAMINE INJ/PF 30 MG/1 ML SDV IV ONE (20:27)
--- NOTE | 2019-01-13 20:34 | ER Document Report ---
ED General - General Chief Complaint: Chest Pain Stated Complaint: CHEST AND BACK PAIN Time Seen by Provider: 01/13/19 19:18 Primary Care Provider: ROSALINO LE MD [NO LOCAL MD] - Follow up as needed Information source: Patient Notes: This 28-year-old female presents to the emergency department with a complaint of chest pain. Her 3-year-old daughter sat on her chest and causing significant pain. She applied heat to the area and took [id number] pain medications and a Flexeril, she continues to have pain that she rates an 8/10. She has a history of pancreatitis secondary to ERCP in November. She also notes one episode of vomiting post the injury. She presents to the ER for evaluation of chest pain and possible cardiac injury. TRAVEL OUTSIDE OF THE [place] IN LAST 30 DAYS: No - Related Data Allergies/Adverse Reactions: adhesive Allergy (Verified 12/20/18 17:57) prochlorperazine [From Compazine] Allergy (Verified 12/20/18 17:57) Home Medications: atarax. amitripyline. bc pill. flexeril Past Medical History - General Information source: Patient - Social History Smoking Status: Never Smoker Chew tobacco use (# tins/day): No Frequency of alcohol use: None Drug Abuse: None Family History: CAD, Other - Anxiety Patient has suicidal ideation: No Patient has homicidal ideation: No - Past Medical History Cardiac Medical History: Reports: Hx Pulmonary Embolism Pulmonary Medical History: Reports: Hx Asthma Renal/ Medical History: Denies: Hx Peritoneal Dialysis GI Medical History: Reports: Hx Pancreatitis, Hx Endoscopic Retrograde Cholangio Past Surgical History: Reports: Hx Cholecystectomy - stent in bile duct - Immunizations Immunizations up to date: Yes Hx Diphtheria, Pertussis, Tetanus Vaccination: Yes Review of Systems - Review of Systems Notes: Constitutional: Negative for fever. HENT: Negative for sore throat. Eyes: Negative for visual changes. Cardiovascular: + Chest pain. Respiratory: Negative for shortness of breath. Gastrointestinal: Negative for abdominal pain, vomiting or diarrhea. Genitourinary: Negative for dysuria. Musculoskeletal: + Back pain. Skin: Negative for rash. Neurological: Negative for headaches, weakness or numbness. 10 point ROS negative except as marked above and in HPI. Physical Exam - Vital signs Vitals: Temp Pulse Resp BP Pulse Ox 98.2 F 118 H 20 144/114 H 100 01/13/19 19:22 01/13/19 19:22 01/13/19 19:22 01/13/19 19:22 01/13/19 19:22 - Notes Notes: Reviewed vital signs and nursing note as charted by RN. CONSTITUTIONAL: Pleasant, polite 28-year-old woman in no acute distress. HEENT: Normocephalic; atraumatic; No swelling, PERRL; Conjunctivae clear, no drainage; EOMI, External ears without lesions; External auditory canal is patent; TMs without erythema, landmarks clear and well visualized; no rhinorrhea; Pharynx without erythema or lesions, no tonsillar hypertrophy, airway patent, mucous membranes pink and moist NECK: Supple, no JVD or bruits CARD: Regular rate and rhythm; no murmurs, no rubs, no gallops, + chest wall tenderness, tenderness in the left periscapular region RESP: Clear, no wheezes rales or rhonchi, chest wall tenderness anterior mid sternal and left parasternal region. ABD/GI: Normal bowel sounds; non-distended; soft, non-tender, no rebound, no guarding, no palpable organomegaly EXT: No edema clubbing or cyanosis SKIN: Warm and dry NEURO: Alert and oriented x3 with no focal motor or sensory or cerebellar abnormalities. Course - Re-evaluation Re-evalutation: 01/13/19 22:11 I reviewed her laboratory data and x-ray findings with the patient. Her labs are normal and the x-rays negative. I have explained that her pain appears to be musculoskeletal and not cardiac in nature. She is instructed to continue her usual medications, use of Biofreeze may help in the musculoskeletal pain. Patient acknowledges understanding of this discussion and is in agreement with the plan. She will follow-up with her primary care doctor as needed. - Vital Signs Vital signs: Temp Pulse Resp BP Pulse Ox 98.2 F 118 H 20 144/114 H 100 01/13/19 19:22 01/13/19 19:22 01/13/19 19:22 01/13/19 19:22 01/13/19 19:22 - Laboratory Result Diagrams: 01/13/19 21:05 01/13/19 21:05 Laboratory results interpreted by me: 01/13/19 01/13/19 21:05 21:05 MCV 77 L MCH 25.5 L RDW 15.9 H AST 431 H Alkaline Phosphatase 181 H Creatine Kinase 25 L I have reviewed laboratory data and used this information in the treatment decisions regarding the patient. - Diagnostic Test Radiology reviewed: Image reviewed, Reports reviewed - Chest x-ray: No acute findings, no infiltrate, no effusion. - EKG Interpretation by [facility] EKG shows normal: Sinus rhythm, Intervals, QRS Complexes, ST-T Waves Rate: Tachycardia Discharge - Discharge Clinical Impression: Chest wall pain Condition: Good Disposition: HOME, SELF-CARE Instructions: Chest Wall Pain ([facility]) Additional Instructions: Please continue your muscle relaxant as previously prescribed May use Biofreeze topically for pain relief. Referrals: ROSALINO LE MD [NO LOCAL MD] - Follow up as needed
[2019-01-13 21:14] LABS: ABSOLUTE BASOPHILS # (AUTO) 0.1 10^3/uL (0.0-0.2); ABSOLUTE EOSINOPHILS # (AUTO) 0.1 10^3/uL (0.0-0.6); ABSOLUTE LYMPHOCYTES (AUTO) 1.9 10^3/uL (0.5-4.7); ABSOLUTE MONOCYTES (AUTO) 0.5 10^3/uL (0.1-1.4); ABSOLUTE NEUT (AUTO) 5.3 10^3/uL (1.7-8.2); BASOPHILS % (AUTO) 1.2 % (0-2); EOSINOPHILS % (AUTO) 1.7 % (0-6); HEMATOCRIT 39.5 % (36.0-47.0); HEMOGLOBIN 13.1 g/dL (12.0-15.5); LYMPHOCYTES % (AUTO) 24.3 % (13-45); MEAN CORPUSCULAR HEMOGLOBIN 25.5 pg (27.0-33.4); MEAN CORPUSCULAR HGB CONC 33.3 g/dL (32.0-36.0); MEAN CORPUSCULAR VOLUME 77 fl (80-97); MONOCYTES % (AUTO) 5.9 % (3-13); PLATELET COUNT 274 10^3/uL (150-450); RED BLOOD COUNT 5.16 10^6/uL (3.72-5.28); RED CELL DISTRIBUTION WIDTH 15.9 % (11.5-14.0); SEGMENTED NEUTROPHILS % (AUTO) 66.9 % (42-78); TOTAL CELLS COUNTED % (AUTO) 100 %; WHITE BLOOD COUNT 7.9 10^3/uL (4.0-10.5)
[2019-01-13 21:49] LABS: ALBUMIN 4.4 g/dL (3.5-5.0); ALKALINE PHOSPHATASE 181 U/L (38-126); ANION GAP 9 (5-19); ASPARTATE AMINO TRANSFERASE 431 U/L (14-36); BILIRUBIN,DIRECT 0.4 mg/dL (0.0-0.4); BILIRUBIN,TOTAL 0.8 mg/dL (0.2-1.3); BLOOD UREA NITROGEN 10 mg/dL (7-20); CARBON DIOXIDE 27 mmol/L (22-30); CHLORIDE 103 mmol/L (98-107); CREATINE KINASE 25 U/L (30-135); GLUCOSE 99 mg/dL (75-110); POTASSIUM 4.4 mmol/L (3.6-5.0); TOTAL PROTEIN 7.1 g/dL (6.3-8.2)
--- NOTE | 2019-01-13 22:16 | EKG REPORT ---
SEVERITY:- ABNORMAL ECG - NONSPECIFIC T ABNORMALITIES, INFERIOR LEADS SINUS RHYTHM BASELINE ARTIFACT : Confirmed by: Nadiya Shell MD 13-Jan-2019 22:16:23
[2019-01-13 23:09] VITALS: BP 125/78
== END 2019-01-13 23:10 | disposition home or self-care (01) ==
LOC: ER 19:07
DX: R07.89 Other chest pain (principal); M54.9 Dorsalgia, unspecified; Z79.899 Other long term (current) drug therapy; R11.10 Vomiting, unspecified; W51.XXXA Accidental striking against or bumped into by another person, initial encounter
CPT/HCPCS: 93005; 99285; 96374; 36415; 82550; 83690; 85025; 80053; 84484; 71046; 93010; J1885; J7040

== ENCOUNTER → 2019-01-22 | Outpatient (CLI) | payer BC ==
--- NOTE | 2019-01-22 16:33 | RADIOLOGY REPORT (SQ) ---
EXAM DESCRIPTION: LUMBAR SPINE COMPLETE COMPLETED DATE/TIME: 01/22/2019 11:51 am REASON FOR STUDY: LOW BACK PAIN M54.5 LOW BACK PAIN COMPARISON: None. NUMBER OF VIEWS: Five views including obliques. TECHNIQUE: AP, lateral, oblique, and sacral radiographic images acquired of the lumbar spine. LIMITATIONS: None. FINDINGS: MINERALIZATION: Normal. SEGMENTATION: Normal. No transitional anatomy. ALIGNMENT: Normal. VERTEBRAE: Maintained height. No fracture or worrisome bone lesion. DISCS: Disc space narrowing L5-S1. POSTERIOR ELEMENTS: Pedicles and facets are intact. No pars defect or posterior arch defects. HARDWARE: None in the spine. PARASPINAL SOFT TISSUES: Normal. PELVIS: Intact as visualized. No fractures or worrisome bone lesions. SI joints intact. OTHER: Stent overlying common bile duct. Prior cholecystectomy. IMPRESSION: Disc disease L5-S1. TECHNICAL DOCUMENTATION: JOB ID: [id number] [employer]- All Rights Reserved Reading location - IP/workstation name: [email or web address]
== END ==
LOC: OD 11:37
PROVIDERS: ATTEND Nurse Practitioner Family
DX: M54.5 Low back pain (principal)
CPT/HCPCS: 72110

== ENCOUNTER → 2019-02-05 | Outpatient (CLI) | payer BC ==
[2019-02-05 13:25] LABS: ALBUMIN 4.4 g/dL (3.5-5.0); ALKALINE PHOSPHATASE 70 U/L (38-126); ANION GAP 12 (5-19); ASPARTATE AMINO TRANSFERASE 15 U/L (14-36); BILIRUBIN,DIRECT 0.1 mg/dL (0.0-0.4); BILIRUBIN,TOTAL 0.4 mg/dL (0.2-1.3); BLOOD UREA NITROGEN 11 mg/dL (7-20); CALCIUM 9.7 mg/dL (8.4-10.2); CARBON DIOXIDE 23 mmol/L (22-30); CHLORIDE 105 mmol/L (98-107); GLUCOSE 85 mg/dL (75-110); POTASSIUM 4.4 mmol/L (3.6-5.0); TOTAL PROTEIN 7.3 g/dL (6.3-8.2)
== END ==
LOC: OD 12:25
PROVIDERS: ATTEND Internal Medicine
DX: K80.50 Calculus of bile duct without cholangitis or cholecystitis without obstruction (principal)
CPT/HCPCS: 36415; 80053

== ENCOUNTER 2019-02-21 10:15 | Emergency (ER) | payer BC ==
[2019-02-21] MEDS ORDERED: MORPHINE SULFATE 10 MG/ML INJ IV ONE (12:01)
[2019-02-21] MEDS ORDERED: ONDANSETRON HCL INJ/PF 4 MG/2 ML SDV IV ONE (12:01)
--- NOTE | 2019-02-21 12:04 | ER Document Report ---
ED Medical Screen (RME) - General Chief Complaint: Rib Pain Stated Complaint: RIB/CHEST PAIN Time Seen by Provider: 02/21/19 11:57 Primary Care Provider: ROSALINO LE MD [Primary Care Provider] - Follow up as needed Mode of Arrival: Ambulatory Information source: Patient Notes: Otherwise healthy 28-year-old female presenting to the emergency department with right upper quadrant pain and chest pain. Patient reports history of cholecystectomy with common bile duct stent placement. She states she believes that is what the pain is from. She states the pain started in the middle of the night. Exam: Tenderness to right upper quadrant. I have greeted and performed a rapid initial assessment of this patient. A comprehensive ED assessment and evaluation of the patient, analysis of test results and completion of the medical decision making process will be conducted by additional ED providers. I have specifically instructed the patient or family members with the patient to immediately return to any nursing staff should anything change in the patient's condition or with their chief complaint. TRAVEL OUTSIDE OF THE [place] IN LAST 30 DAYS: No - Related Data Allergies/Adverse Reactions: adhesive Allergy (Verified 02/21/19 11:56) prochlorperazine [From Compazine] Allergy (Verified 02/21/19 11:56) Past Medical History - Social History Chew tobacco use (# tins/day): No Frequency of alcohol use: None Drug Abuse: None - Past Medical History Cardiac Medical History: Reports: Hx Pulmonary Embolism Pulmonary Medical History: Reports: Hx Asthma Renal/ Medical History: Denies: Hx Peritoneal Dialysis GI Medical History: Reports: Hx Pancreatitis, Hx Endoscopic Retrograde Cholangio Past Surgical History: Reports: Hx Cholecystectomy - stent in bile duct - Immunizations Immunizations up to date: Yes Hx Diphtheria, Pertussis, Tetanus Vaccination: Yes Physical Exam - Vital signs Vitals: Temp Pulse Resp BP Pulse Ox 98.3 F 108 H 18 138/89 H 98 02/21/19 10:34 02/21/19 10:34 02/21/19 10:34 02/21/19 10:34 02/21/19 10:34 Course - Vital Signs Vital signs: Temp Pulse Resp BP Pulse Ox 98.3 F 108 H 18 138/89 H 98 02/21/19 10:34 02/21/19 10:34 02/21/19 10:34 02/21/19 10:34 02/21/19 10:34 Doctor's Discharge - Discharge Referrals: ROSALINO LE MD [Primary Care Provider] - Follow up as needed
[2019-02-21 13:08] LABS: ABSOLUTE BASOPHILS # (AUTO) 0.1 10^3/uL (0.0-0.2); ABSOLUTE EOSINOPHILS # (AUTO) 0.2 10^3/uL (0.0-0.6); ABSOLUTE LYMPHOCYTES (AUTO) 2.4 10^3/uL (0.5-4.7); ABSOLUTE MONOCYTES (AUTO) 0.5 10^3/uL (0.1-1.4); ABSOLUTE NEUT (AUTO) 4.5 10^3/uL (1.7-8.2); APPEARANCE,URINE CLEAR; BASOPHILS % (AUTO) 1.4 % (0-2); BILIRUBIN,URINE NEGATIVE (NEGATIVE); COLOR,URINE STRAW; EOSINOPHILS % (AUTO) 2.3 % (0-6); GLUCOSE, URINE NEGATIVE (NEGATIVE); HEMATOCRIT 39.1 % (36.0-47.0); KETONES,URINE NEGATIVE (NEGATIVE); LEUKOCYTE ESTERASE,URINE SMALL (NEGATIVE); LYMPHOCYTES % (AUTO) 31.2 % (13-45); MEAN CORPUSCULAR HEMOGLOBIN 25.5 pg (27.0-33.4); MEAN CORPUSCULAR HGB CONC 33.3 g/dL (32.0-36.0); MEAN CORPUSCULAR VOLUME 77 fl (80-97); MONOCYTES % (AUTO) 6.5 % (3-13); NITRITE,URINE NEGATIVE (NEGATIVE); PLATELET COUNT 281 10^3/uL (150-450); PROTEIN,URINE NEGATIVE (NEGATIVE); RED CELL DISTRIBUTION WIDTH 14.6 % (11.5-14.0); SEGMENTED NEUTROPHILS % (AUTO) 58.6 % (42-78); TOTAL CELLS COUNTED % (AUTO) 100 %; URINE SPECIFIC GRAVITY 1.006; UROBILINOGEN,URINE NEGATIVE mg/dL (<2.0); WHITE BLOOD COUNT 7.6 10^3/uL (4.0-10.5)
[2019-02-21 13:24] LABS: ALBUMIN 4.3 g/dL (3.5-5.0); ALKALINE PHOSPHATASE 64 U/L (38-126); ANION GAP 13 (5-19); ASPARTATE AMINO TRANSFERASE 14 U/L (14-36); BILIRUBIN,DIRECT 0.1 mg/dL (0.0-0.4); BILIRUBIN,TOTAL 0.4 mg/dL (0.2-1.3); BLOOD UREA NITROGEN 12 mg/dL (7-20); CALCIUM 9.8 mg/dL (8.4-10.2); CARBON DIOXIDE 25 mmol/L (22-30); CHLORIDE 102 mmol/L (98-107); GLUCOSE 89 mg/dL (75-110); POTASSIUM 3.9 mmol/L (3.6-5.0)
--- NOTE | 2019-02-21 14:33 | ER Document Report ---
ED General - General Chief Complaint: Rib Pain Stated Complaint: RIB/CHEST PAIN Time Seen by Provider: 02/21/19 11:57 Primary Care Provider: ROSALINO LE MD [NO LOCAL MD] - Follow up as needed Mode of Arrival: Ambulatory Information source: Patient Notes: Patient complains of right upper quadrant abdominal pain. She is concerned for the stent in her biliary system after ERCP. She is due to have the stent replaced at an outside institution next year. She is requesting that we check her liver function tests to see if her biliary system is involved in her pain. She denies any fevers or chills. She also has substernal chest pain. No shortness of breath. No rashes. No trauma. She denies eating anything out of the ordinary yesterday. No other complaints. She also does have a history of pulmonary embolism. TRAVEL OUTSIDE OF THE [place] IN LAST 30 DAYS: No - Related Data Allergies/Adverse Reactions: adhesive Allergy (Verified 02/21/19 11:56) prochlorperazine [From Compazine] Allergy (Verified 02/21/19 11:56) Past Medical History - General Information source: Patient - Social History Smoking Status: Never Smoker Chew tobacco use (# tins/day): No Frequency of alcohol use: None Drug Abuse: None Family History: CAD, Other - Anxiety Patient has suicidal ideation: No Patient has homicidal ideation: No - Past Medical History Cardiac Medical History: Reports: Hx Pulmonary Embolism Pulmonary Medical History: Reports: Hx Asthma Renal/ Medical History: Denies: Hx Peritoneal Dialysis GI Medical History: Reports: Hx Pancreatitis, Hx Endoscopic Retrograde Cholangio Past Surgical History: Reports: Hx Cholecystectomy - stent in bile duct - Immunizations Immunizations up to date: Yes Hx Diphtheria, Pertussis, Tetanus Vaccination: Yes Review of Systems - Review of Systems Constitutional: denies: Chills, Fever Cardiovascular: Chest pain. denies: Palpitations -: Yes All other systems reviewed and negative Physical Exam - Vital signs Vitals: Temp Pulse Resp BP Pulse Ox 98.3 F 108 H 18 138/89 H 98 02/21/19 10:34 02/21/19 10:34 02/21/19 10:34 02/21/19 10:34 02/21/19 10:34 Interpretation: Hypertensive, Tachycardic - General General appearance: Appears well, Alert - HEENT Head: Normocephalic, Atraumatic Eyes: Normal Pupils: PERRL - Respiratory Respiratory status: No respiratory distress Chest status: Nontender Breath sounds: Normal Chest palpation: Normal - Cardiovascular Rhythm: Regular Heart sounds: Normal auscultation Murmur: No - Abdominal Inspection: Normal Distension: No distension Bowel sounds: Normal Tenderness: Nontender Organomegaly: No organomegaly - Back Back: Normal, Nontender - Extremities General upper extremity: Normal inspection, Nontender, Normal color, Normal ROM, Normal temperature General lower extremity: Normal inspection, Nontender, Normal color, Normal ROM, Normal temperature, Normal weight bearing. No: Sharifa's sign - Neurological Neuro grossly intact: Yes Cognition: Normal Orientation: AAOx4 [place] Coma Scale Eye Opening: Spontaneous [place] Coma Scale Verbal: Oriented Court Coma Scale Motor: Obeys Commands Court Coma Scale Total: 15 Speech: Normal Motor strength normal: LUE, RUE, LLE, RLE Sensory: Normal - Psychological Associated symptoms: Normal affect, Normal mood - Skin Skin Temperature: Warm Skin Moisture: Dry Skin Color: Normal Course - Re-evaluation Re-evalutation: 02/21/19 14:32 Labs reviewed. Liver function tests normal. 02/21/19 14:50 EKG per me shows normal sinus rhythm at a rate of 85 with normal QRS axis normal T waves. normal. 02/21/19 14:52 Abdominal ultrasound per radiologist no acute disease. 02/21/19 15:00 Patient feels better and wants to go home. I suggested that we do a work-up to rule out pulmonary embolism; however, patient declines at this time because she says the symptoms feel nothing like the pulmonary embolism she had during her . She agrees to return at once if worse or new symptoms and will follow-up with her own doctor tomorrow. 02/21/19 15:02 - Vital Signs Vital signs: Temp Pulse Resp BP Pulse Ox 98.3 F 108 H 18 138/89 H 98 02/21/19 10:34 02/21/19 10:34 02/21/19 10:34 02/21/19 10:34 02/21/19 10:34 - Laboratory Result Diagrams: 02/21/19 12:30 02/21/19 12:30 Laboratory results interpreted by me: 02/21/19 02/21/19 12:30 12:30 MCV 77 L MCH 25.5 L RDW 14.6 H Ur Leukocyte Esterase SMALL H Discharge - Discharge Clinical Impression: Abdominal pain Qualifiers: Abdominal location: unspecified location Qualified Code(s): R10.9 - Unspecified abdominal pain Chest pain Qualifiers: Chest pain type: unspecified Qualified Code(s): R07.9 - Chest pain, unspecified Condition: Stable Disposition: HOME, SELF-CARE Instructions: Abdominal Pain ([facility]) Additional Instructions: Return at once if worse or new symptoms. Follow-up with your own doctor tomorrow for recheck. Return anytime if you change your mind and agree to work- up for blood clots in your lung. Referrals: ROSALINO LE MD [NO LOCAL MD] - Follow up as needed
--- NOTE | 2019-02-21 14:45 | RADIOLOGY REPORT (SQ) ---
EXAM DESCRIPTION: U/S ABDOMEN LIMITED W/O DOP COMPLETED DATE/TIME: 02/21/2019 1:32 pm REASON FOR STUDY: RUQ pain, CBD stent COMPARISON: 12/25/2018 TECHNIQUE: Dynamic and static grayscale images acquired of the abdomen and recorded on PACS. Additio nal selected color Doppler and spectral images recorded. LIMITATIONS: None. FINDINGS: PANCREAS: No masses. Visualized pancreatic duct normal caliber. LIVER: No masses. Echotexture normal. LIVER VASCULATURE: Normal directional flow of the main portal vein and hepatic veins. GALLBLADDER: Surgically absent. ULTRASOUND-DETECTED SHEPHERD'S SIGN: Negative. INTRAHEPATIC DUCTS AND COMMON DUCT: CBD and intrahepatic ducts normal caliber. Partially visualized biliary ductal stent. INFERIOR VENA CAVA: Normal flow. AORTA: No aneurysm. RIGHT KIDNEY: Normal size. Normal echogenicity. No solid or suspicious masses. No hydronephrosis. No calcifications. PERITONEAL AND RIGHT PLEURAL SPACE: No ascites or effusions. OTHER: No other significant findings. IMPRESSION: Prior cholecystectomy. Partially visualized biliary ductal stent. No evidence of ducta l dilation or other acute process. TECHNICAL DOCUMENTATION: JOB ID: [id number]- All Rights Reserved Reading location - IP/workstation name: [email or web address]
[2019-02-21 15:09] VITALS: BP 146/96
--- NOTE | 2019-02-21 16:25 | EKG REPORT ---
SEVERITY:- NORMAL ECG - SINUS RHYTHM : Confirmed by: Nadiya Shell MD 21-Feb-2019 16:24:45
== END 2019-02-21 15:10 | disposition home or self-care (01) ==
LOC: ER 10:15
DX: R07.81 Pleurodynia (principal); R10.11 Right upper quadrant pain; Z86.711 Personal history of pulmonary embolism; Z90.49 Acquired absence of other specified parts of digestive tract
CPT/HCPCS: 36415; 76705; 80053; 81001; 83690; 85025; 93005; 93010; 99284

== ENCOUNTER 2019-03-10 07:46 | Emergency (ER) | payer BC ==
[2019-03-10 08:51] LABS: APPEARANCE,URINE CLEAR; BILIRUBIN,URINE NEGATIVE (NEGATIVE); COLOR,URINE STRAW; GLUCOSE, URINE NEGATIVE (NEGATIVE); KETONES,URINE NEGATIVE (NEGATIVE); LEUKOCYTE ESTERASE,URINE NEGATIVE (NEGATIVE); NITRITE,URINE NEGATIVE (NEGATIVE); PROTEIN,URINE NEGATIVE (NEGATIVE); UROBILINOGEN,URINE NEGATIVE mg/dL (<2.0)
[2019-03-10 09:18] LABS: ABSOLUTE BASOPHILS # (AUTO) 0.1 10^3/uL (0.0-0.2); ABSOLUTE EOSINOPHILS # (AUTO) 0.2 10^3/uL (0.0-0.6); ABSOLUTE LYMPHOCYTES (AUTO) 2.5 10^3/uL (0.5-4.7); ABSOLUTE MONOCYTES (AUTO) 0.5 10^3/uL (0.1-1.4); ABSOLUTE NEUT (AUTO) 3.5 10^3/uL (1.7-8.2); BASOPHILS % (AUTO) 1.2 % (0-2); EOSINOPHILS % (AUTO) 2.5 % (0-6); HEMATOCRIT 34.4 % (36.0-47.0); HEMOGLOBIN 11.4 g/dL (12.0-15.5); LYMPHOCYTES % (AUTO) 37.6 % (13-45); MEAN CORPUSCULAR HEMOGLOBIN 25.7 pg (27.0-33.4); MEAN CORPUSCULAR VOLUME 78 fl (80-97); MONOCYTES % (AUTO) 6.9 % (3-13); PLATELET COUNT 202 10^3/uL (150-450); RED BLOOD COUNT 4.42 10^6/uL (3.72-5.28); RED CELL DISTRIBUTION WIDTH 14.3 % (11.5-14.0); SEGMENTED NEUTROPHILS % (AUTO) 51.8 % (42-78); TOTAL CELLS COUNTED % (AUTO) 100 %; WHITE BLOOD COUNT 6.7 10^3/uL (4.0-10.5)
--- NOTE | 2019-03-10 09:23 | ER Document Report ---
ED General - General Chief Complaint: Abdominal Pain Stated Complaint: UPPER ABDOMINAL PAIN Time Seen by Provider: 03/10/19 08:39 Primary Care Provider: HARJINDER PRESCOTT FNP-C [Primary Care Provider] - Follow up as needed TRAVEL OUTSIDE OF THE [place] IN LAST 30 DAYS: No - HPI Notes: Patient is a 28-year-old female who presents emergency department for evaluation of epigastric and right upper quadrant pain. She is a history of a common bile duct stricture, status post ERCP with stent placement on Monday at [facility]. She was kept overnight and ruled out for pancreatitis, she had developed that in the past. She states that this does not feel like her pancreatitis. When she woke up from the procedure she had pain, she states it persists. Is sharp and radiates into her chest. Is worsened by position. She is tried Tylenol, warm baths, muscle relaxers, has not had any significant relief. She has been told to avoid NSAIDs for 1 week following this stent placement. She denies any fevers or chills. She has had some nausea this morning but no emesis. Normal urination. States she had some diarrhea yesterday but this seems to have improved. - Related Data Allergies/Adverse Reactions: adhesive Allergy (Verified 03/10/19 07:54) prochlorperazine [From Compazine] Allergy (Verified 03/10/19 07:54) Home Medications: Flexeril. Atarax. Amitryptyline. Omprazole. Ativan Past Medical History - General Information source: Patient - Social History Smoking Status: Never Smoker Chew tobacco use (# tins/day): No Frequency of alcohol use: None Drug Abuse: None Family History: CAD, Other - Anxiety Patient has suicidal ideation: No Patient has homicidal ideation: No - Past Medical History Cardiac Medical History: Reports: Hx Pulmonary Embolism - During Pulmonary Medical History: Reports: Hx Asthma Renal/ Medical History: Denies: Hx Peritoneal Dialysis GI Medical History: Reports: Hx Pancreatitis, Hx Endoscopic Retrograde Cholangio Past Surgical History: Reports: Hx Cholecystectomy - stent in bile duct - Immunizations Immunizations up to date: Yes Hx Diphtheria, Pertussis, Tetanus Vaccination: Yes Review of Systems - Review of Systems Constitutional: No symptoms reported EENT: No symptoms reported Cardiovascular: No symptoms reported Respiratory: No symptoms reported Gastrointestinal: See HPI Genitourinary: No symptoms reported Musculoskeletal: No symptoms reported Skin: No symptoms reported Neurological/Psychological: No symptoms reported Physical Exam - Vital signs Vitals: Temp Pulse Resp BP Pulse Ox 97.9 F 89 20 145/93 H 100 03/10/19 07:49 03/10/19 07:49 03/10/19 07:49 03/10/19 07:49 03/10/19 07:49 - Notes Notes: Vital signs reviewed, please refer to chart. Head is normocephalic, atraumatic. Pupils equal round, reactive to light. Neck is supple without meningismus. Heart is regular rate and rhythm. Lungs are clear to auscultation bilaterally. Abdomen is soft, moderately tender in the epigastrium or right upper quadrant without rebound or guarding,, normoactive bowel sounds throughout. Extremities without cyanosis, clubbing. Posterior calves are nontender. Peripheral pulses are equal. Skin is warm and dry. Patient is awake, alert, neurological exam is nonfocal. Course - Re-evaluation Re-evalutation: 03/10/19 11:37 Patient presents emergency department for evaluation after biliary duct stent placement on Monday. She complains of abdominal pain. This is a different symptom what she is used to. Her abdominal exam is tender but nonsurgical. Serial exams are unremarkable. Her laboratory investigations failed to reveal any significant abnormality in her LFTs. No evidence of pancreatitis. Patient is feeling minimally improved with the fentanyl, but I do not see any indication for further intervention at this time. I will send her home with a small amount of pain medication. She is to call her physician at [facility] tomorrow for further instructions. If she develops fever, increased pain, vomiting, or any other new or concerning symptoms, she needs to return to the ED for further evaluation. - Vital Signs Vital signs: Temp Pulse Resp BP Pulse Ox 97.9 F 89 20 145/93 H 100 03/10/19 07:49 03/10/19 07:49 03/10/19 07:49 03/10/19 07:49 03/10/19 07:49 - Laboratory Result Diagrams: 03/10/19 09:14 03/10/19 09:14 Laboratory results interpreted by me: 03/10/19 03/10/19 03/10/19 08:30 09:14 09:14 Hgb 11.4 L Hct 34.4 L MCV 78 L MCH 25.7 L RDW 14.3 H AST 59 H Total Protein 6.2 L Urine Blood MODERATE H Discharge - Discharge Clinical Impression: Abdominal pain Qualifiers: Abdominal location: right upper quadrant Qualified Code(s): R10.11 - Right upper quadrant pain Condition: Stable Disposition: HOME, SELF-CARE Instructions: Abdominal Pain ([facility]) Additional Instructions: No clear emergent cause was found for your pain today. It is likely just secondary to the stent. Please take Nebo as needed for severe pain. Watch for constipation with this medication. Contact your provider at [facility] tomorrow for further instructions. If you develop fever, increased pain, vomiting, yellowing of the skin or eyes, or any other new or concerning symptoms, please return immediately to the emergency department for evaluation. Referrals: HARJINDER PRESCOTT FNP-C [Primary Care Provider] - Follow up as needed
[2019-03-10] MEDS ORDERED: NORMAL SALINE 1000 ML 1,000 ML IV ONE (09:28)
[2019-03-10] MEDS ORDERED: FENTANYL CITRATE INJ/PF 100 MCG/2 ML AMPUL IV ONE (09:28)
[2019-03-10] MEDS ORDERED: ONDANSETRON HCL INJ/PF 4 MG/2 ML SDV IV ONE (09:28)
[2019-03-10 09:35] LABS: ALBUMIN 3.7 g/dL (3.5-5.0); ALKALINE PHOSPHATASE 83 U/L (38-126); ANION GAP 7 (5-19); ASPARTATE AMINO TRANSFERASE 59 U/L (14-36); BILIRUBIN,DIRECT 0.3 mg/dL (0.0-0.4); BILIRUBIN,TOTAL 0.4 mg/dL (0.2-1.3); BLOOD UREA NITROGEN 9 mg/dL (7-20); CARBON DIOXIDE 27 mmol/L (22-30); CHLORIDE 106 mmol/L (98-107); GLUCOSE 94 mg/dL (75-110); TOTAL PROTEIN 6.2 g/dL (6.3-8.2)
[2019-03-10] MEDS ORDERED: HYDROCODONE/ACETAMINOPHEN 5-325 MG (6 TAB/ER DISP) PO PRN (11:37)
[2019-03-10 11:57] VITALS: BP 125/86
== END 2019-03-10 11:56 | disposition home or self-care (01) ==
LOC: ER 07:46
DX: R10.11 Right upper quadrant pain (principal); R10.13 Epigastric pain; Z90.49 Acquired absence of other specified parts of digestive tract
CPT/HCPCS: 99284; 96361; 96374; 96375; 36415; 83690; 85025; 80053; 81001; J3010; J2405; J7030

== ENCOUNTER → 2019-03-11 | Outpatient (CLI) | payer BC ==
[2019-03-11 14:26] LABS: ABSOLUTE BASOPHILS # (AUTO) 0.1 10^3/uL (0.0-0.2); ABSOLUTE EOSINOPHILS # (AUTO) 0.4 10^3/uL (0.0-0.6); ABSOLUTE LYMPHOCYTES (AUTO) 2.9 10^3/uL (0.5-4.7); ABSOLUTE MONOCYTES (AUTO) 0.6 10^3/uL (0.1-1.4); ABSOLUTE NEUT (AUTO) 3.7 10^3/uL (1.7-8.2); BASOPHILS % (AUTO) 1.2 % (0-2); EOSINOPHILS % (AUTO) 4.7 % (0-6); HEMATOCRIT 37.3 % (36.0-47.0); HEMOGLOBIN 12.7 g/dL (12.0-15.5); LYMPHOCYTES % (AUTO) 38.1 % (13-45); MEAN CORPUSCULAR HEMOGLOBIN 25.9 pg (27.0-33.4); MEAN CORPUSCULAR VOLUME 76 fl (80-97); MONOCYTES % (AUTO) 7.8 % (3-13); PLATELET COUNT 241 10^3/uL (150-450); RED CELL DISTRIBUTION WIDTH 13.8 % (11.5-14.0); SEGMENTED NEUTROPHILS % (AUTO) 48.2 % (42-78); TOTAL CELLS COUNTED % (AUTO) 100 %; WHITE BLOOD COUNT 7.7 10^3/uL (4.0-10.5)
[2019-03-11 14:51] LABS: ALBUMIN 4.2 g/dL (3.5-5.0); ALKALINE PHOSPHATASE 90 U/L (38-126); AMYLASE 65 U/L (30-110); ANION GAP 12 (5-19); ASPARTATE AMINO TRANSFERASE 28 U/L (14-36); BILIRUBIN,DIRECT 0.3 mg/dL (0.0-0.4); BILIRUBIN,TOTAL 0.3 mg/dL (0.2-1.3); BLOOD UREA NITROGEN 10 mg/dL (7-20); CARBON DIOXIDE 26 mmol/L (22-30); CHLORIDE 102 mmol/L (98-107); GLUCOSE 82 mg/dL (75-110); POTASSIUM 4.1 mmol/L (3.6-5.0); TOTAL PROTEIN 6.8 g/dL (6.3-8.2)
== END ==
LOC: OD 13:47
PROVIDERS: ATTEND Nurse Practitioner Family
DX: R10.11 Right upper quadrant pain (principal); Z98.890 Other specified postprocedural states
CPT/HCPCS: 36415; 80053; 82150; 83690; 85025

== ENCOUNTER → 2019-05-13 | Outpatient (CLI) | payer BC ==
[2019-05-13 17:03] LABS: ALBUMIN 4.6 g/dL (3.5-5.0); ALKALINE PHOSPHATASE 67 U/L (38-126); ANION GAP 12 (5-19); ASPARTATE AMINO TRANSFERASE 16 U/L (14-36); BILIRUBIN,DIRECT 0.3 mg/dL (0.0-0.4); BILIRUBIN,TOTAL 0.4 mg/dL (0.2-1.3); BLOOD UREA NITROGEN 13 mg/dL (7-20); CALCIUM 10.2 mg/dL (8.4-10.2); CARBON DIOXIDE 26 mmol/L (22-30); CHLORIDE 102 mmol/L (98-107); GLUCOSE 75 mg/dL (75-110); POTASSIUM 4.3 mmol/L (3.6-5.0); TOTAL PROTEIN 7.6 g/dL (6.3-8.2)
== END ==
LOC: OD 15:53
PROVIDERS: ATTEND Internal Medicine
DX: K80.50 Calculus of bile duct without cholangitis or cholecystitis without obstruction (principal)
CPT/HCPCS: 36415; 80053

== ENCOUNTER → 2019-07-25 | Outpatient (CLI) | payer BC ==
[2019-07-25 14:24] LABS: ABSOLUTE BASOPHILS # (AUTO) 0.1 10^3/uL (0.0-0.2); ABSOLUTE EOSINOPHILS # (AUTO) 0.1 10^3/uL (0.0-0.6); ABSOLUTE LYMPHOCYTES (AUTO) 2.6 10^3/uL (0.5-4.7); ABSOLUTE MONOCYTES (AUTO) 0.6 10^3/uL (0.1-1.4); ABSOLUTE NEUT (AUTO) 5.2 10^3/uL (1.7-8.2); BASOPHILS % (AUTO) 0.8 % (0-2); EOSINOPHILS % (AUTO) 1.7 % (0-6); HEMATOCRIT 38.2 % (36.0-47.0); HEMOGLOBIN 12.7 g/dL (12.0-15.5); LYMPHOCYTES % (AUTO) 30.3 % (13-45); MEAN CORPUSCULAR HEMOGLOBIN 24.5 pg (27.0-33.4); MEAN CORPUSCULAR HGB CONC 33.1 g/dL (32.0-36.0); MEAN CORPUSCULAR VOLUME 74 fl (80-97); PLATELET COUNT 280 10^3/uL (150-450); RED BLOOD COUNT 5.16 10^6/uL (3.72-5.28); RED CELL DISTRIBUTION WIDTH 14.8 % (11.5-14.0); SEGMENTED NEUTROPHILS % (AUTO) 60.2 % (42-78); TOTAL CELLS COUNTED % (AUTO) 100 %; WHITE BLOOD COUNT 8.6 10^3/uL (4.0-10.5)
[2019-07-25 14:38] LABS: ALBUMIN 4.2 g/dL (3.5-5.0); ALKALINE PHOSPHATASE 52 U/L (38-126); ANION GAP 10 (5-19); ASPARTATE AMINO TRANSFERASE 13 U/L (14-36); BILIRUBIN,TOTAL 0.5 mg/dL (0.2-1.3); BLOOD UREA NITROGEN 12 mg/dL (7-20); CALCIUM 9.7 mg/dL (8.4-10.2); CARBON DIOXIDE 24 mmol/L (22-30); CHLORIDE 102 mmol/L (98-107); GLUCOSE 96 mg/dL (75-110); POTASSIUM 4.8 mmol/L (3.6-5.0); TOTAL PROTEIN 6.7 g/dL (6.3-8.2)
== END ==
LOC: OD 13:33
PROVIDERS: ATTEND Internal Medicine
DX: K83.1 Obstruction of bile duct (principal)
CPT/HCPCS: 36415; 80053; 85025

== ENCOUNTER → 2019-09-20 | Outpatient (CLI) | payer BC ==
[2019-09-20 14:46] LABS: ALBUMIN 4.2 g/dL (3.5-5.0); ALKALINE PHOSPHATASE 61 U/L (38-126); ANION GAP 7 (5-19); ASPARTATE AMINO TRANSFERASE 15 U/L (14-36); BILIRUBIN,TOTAL 0.4 mg/dL (0.2-1.3); BLOOD UREA NITROGEN 8 mg/dL (7-20); CALCIUM 9.7 mg/dL (8.4-10.2); CARBON DIOXIDE 27 mmol/L (22-30); CHLORIDE 104 mmol/L (98-107); GLUCOSE 101 mg/dL (75-110); POTASSIUM 4.4 mmol/L (3.6-5.0)
== END ==
LOC: OD 12:59
PROVIDERS: ATTEND Internal Medicine
DX: K80.50 Calculus of bile duct without cholangitis or cholecystitis without obstruction (principal)
CPT/HCPCS: 36415; 80053

== ENCOUNTER 2019-10-09 13:49 | Emergency (ER) | payer BC ==
[2019-10-09] MEDS ORDERED: ONDANSETRON 4 MG TAB.RAPDIS PO ONE (14:04)
--- NOTE | 2019-10-09 14:05 | ER Document Report ---
ED Medical Screen (RME) - General Chief Complaint: Nausea/Vomiting Stated Complaint: NAUSEA,VOMITING Time Seen by Provider: 10/09/19 13:59 Primary Care Provider: ROSALINO LE MD [Primary Care Provider] - Follow up as needed TRAVEL OUTSIDE OF THE [place] IN LAST 30 DAYS: No - HPI Notes: 10/09/19 14:05 28-year-old female 2 para 2 presents with a history of GERD to the emergency room with complaints of epigastric pain and substernal chest pain for the last 5 days. Patient reports that she has had issues with her common bile duct since having a cholecystectomy done in April 2018 in [place]. Reports she has had 5 stents placed, recently had a stent removed from the common bile duct 2 weeks ago. She follows with Dr. Herrera in [place], states her last ERCP was done on September 19. They have just been watching her levels. Patient states last menstrual cycle was September 29, 2019. Patient states pain is constant, reports intermittent nausea. Denies any vomiting, diarrhea, fevers chills, shortness of breath. I have greeted and performed a rapid initial assessment of this patient. A comprehensive ED assessment and evaluation of the patient, analysis of test results and completion of the medical decision making process will be conducted by additional ED providers. PHYSICAL EXAMINATION: GENERAL: Well-appearing, well-nourished and in no acute distress. CV: s1, s2 regular LUNGS: No respiratory distress abd: Epigastric abdominal pain on palpation - Related Data Allergies/Adverse Reactions: adhesive Allergy (Verified 03/10/19 07:54) prochlorperazine [From Compazine] Allergy (Verified 03/10/19 07:54) Past Medical History - Past Medical History Cardiac Medical History: Reports: Hx Pulmonary Embolism - During Pulmonary Medical History: Reports: Hx Asthma Renal/ Medical History: Denies: Hx Peritoneal Dialysis GI Medical History: Reports: Hx Pancreatitis, Hx Endoscopic Retrograde Cholangio Past Surgical History: Reports: Hx Cholecystectomy - stent in bile duct - Immunizations Immunizations up to date: Yes Hx Diphtheria, Pertussis, Tetanus Vaccination: Yes Doctor's Discharge - Discharge Referrals: ROSALINO LE MD [Primary Care Provider] - Follow up as needed
--- NOTE | 2019-10-09 15:47 | EKG REPORT ---
SEVERITY:- ABNORMAL ECG - SINUS RHYTHM NONSPECIFIC T ABNORMALITIES, INFERIOR LEADS : Confirmed by: Aj Ahumada MD 09-Oct-2019 15:47:22
[2019-10-09 16:00] LABS: ABSOLUTE BASOPHILS # (AUTO) 0.1 10^3/uL (0.0-0.2); ABSOLUTE LYMPHOCYTES (AUTO) 1.6 10^3/uL (0.5-4.7); ABSOLUTE MONOCYTES (AUTO) 0.5 10^3/uL (0.1-1.4); BASOPHILS % (AUTO) 1.2 % (0-2); EOSINOPHILS % (AUTO) 0.6 % (0-6); HEMATOCRIT 38.9 % (36.0-47.0); HEMOGLOBIN 12.6 g/dL (12.0-15.5); LYMPHOCYTES % (AUTO) 25.9 % (13-45); MEAN CORPUSCULAR HEMOGLOBIN 24.7 pg (27.0-33.4); MEAN CORPUSCULAR HGB CONC 32.3 g/dL (32.0-36.0); MEAN CORPUSCULAR VOLUME 76 fl (80-97); MONOCYTES % (AUTO) 7.4 % (3-13); PLATELET COUNT 246 10^3/uL (150-450); RED BLOOD COUNT 5.09 10^6/uL (3.72-5.28); RED CELL DISTRIBUTION WIDTH 15.9 % (11.5-14.0); SEGMENTED NEUTROPHILS % (AUTO) 64.9 % (42-78); TOTAL CELLS COUNTED % (AUTO) 100 %; WHITE BLOOD COUNT 6.1 10^3/uL (4.0-10.5)
[2019-10-09 16:20] LABS: ALBUMIN 4.4 g/dL (3.5-5.0); ALKALINE PHOSPHATASE 214 U/L (38-126); ANION GAP 6 (5-19); ASPARTATE AMINO TRANSFERASE 204 U/L (14-36); BILIRUBIN,DIRECT 0.5 mg/dL (0.0-0.4); BILIRUBIN,TOTAL 1.2 mg/dL (0.2-1.3); BLOOD UREA NITROGEN 8 mg/dL (7-20); CALCIUM 9.9 mg/dL (8.4-10.2); CARBON DIOXIDE 28 mmol/L (22-30); CHLORIDE 104 mmol/L (98-107); GLUCOSE 97 mg/dL (75-110); POTASSIUM 4.9 mmol/L (3.6-5.0); TOTAL PROTEIN 7.2 g/dL (6.3-8.2)
--- NOTE | 2019-10-09 16:21 | RADIOLOGY REPORT (SQ) ---
EXAM DESCRIPTION: U/S ABDOMEN LTD W/DOPPLER IMAGES COMPLETED DATE/TIME: 10/09/2019 4:12 pm REASON FOR STUDY: epigastric pain, CBD stent removed 2w ago, +nausea COMPARISON: None. TECHNIQUE: Dynamic and static grayscale images acquired of the abdomen and recorded on PACS. Additio nal selected color Doppler and spectral images recorded. LIMITATIONS: None. FINDINGS: PANCREAS: No masses. Visualized pancreatic duct normal caliber. LIVER: No masses. Echotexture normal. LIVER VASCULATURE: Normal directional flow of the main portal vein and hepatic veins. GALLBLADDER: Surgically absent. ULTRASOUND-DETECTED SHEPHERD'S SIGN: Negative. INTRAHEPATIC DUCTS AND COMMON DUCT: CBD and intrahepatic ducts normal caliber. No filling defects. INFERIOR VENA CAVA: Normal flow. AORTA: No aneurysm. RIGHT KIDNEY: Normal size. Normal echogenicity. No solid or suspicious masses. No hydronephrosis. No calcifications. PERITONEAL AND RIGHT PLEURAL SPACE: No ascites or effusions. OTHER: No other significant findings. IMPRESSION: NORMAL RIGHT UPPER QUADRANT ULTRASOUND. TECHNICAL DOCUMENTATION: JOB ID: [id number] [employer]- All Rights Reserved Reading location - IP/workstation name: [email or web address]
--- NOTE | 2019-10-09 16:47 | ER Document Report ---
ED GI/ - General Chief Complaint: Nausea Stated Complaint: NAUSEA,VOMITING Time Seen by Provider: 10/09/19 13:59 Primary Care Provider: ROSALINO LE MD [NO LOCAL MD] - Follow up as needed SHIV GELLER MD [ACTIVE PROVISIONAL STAFF] - Follow up as needed Mode of Arrival: Ambulatory Information source: Patient Notes: 28-year-old female past medical history significant for biliary duct obstruction with 5 stents since having her cholecystectomy in April 2018. Presents the emergency room complaining of generalized fatigue. Worse with standing. And nausea for the past 5 days. No vomiting, no fevers. No urinary symptoms. No abdominal pain. Patient states in the past when she is had the symptoms it is been secondary to a bile duct obstruction. States she had a last stent removed September 05. Also complains of intermittent chest pain for the past 5 days. Describes it as a burning sensation midsternal. Not taking medications for it currently pain-free. No recent travel. No COVID-19 exposure. TRAVEL OUTSIDE OF THE [place] IN LAST 30 DAYS: No - Related Data Allergies/Adverse Reactions: adhesive Allergy (Verified 10/09/19 15:38) prochlorperazine [From Compazine] Allergy (Verified 10/09/19 15:38) Past Medical History - Social History Smoking Status: Never Smoker Family History: CAD, Other - Anxiety Patient has homicidal ideation: No - Past Medical History Cardiac Medical History: Reports: Hx Pulmonary Embolism - During Pulmonary Medical History: Reports: Hx Asthma Renal/ Medical History: Denies: Hx Peritoneal Dialysis GI Medical History: Reports: Hx Pancreatitis, Hx Endoscopic Retrograde Cholangio Past Surgical History: Reports: Hx Cholecystectomy - stent in bile duct - Immunizations Immunizations up to date: Yes Hx Diphtheria, Pertussis, Tetanus Vaccination: Yes Physical Exam - Vital signs Vitals: Temp Pulse Resp BP Pulse Ox 99.3 F 99 18 142/85 H 100 10/09/19 15:26 10/09/19 15:26 10/09/19 15:26 10/09/19 15:26 10/09/19 15:26 - Notes Notes: VITAL SIGNS: Within normal limits. GENERAL: Mild acute distress, non-toxic appearance. HEAD: Normal with no signs of head trauma. EYES: PERRLA, EOMI, conjunctiva normal, no discharge. EARS: Hearing grossly intact. NOSE: Normal. THROAT: Oropharynx is normal. NECK: Normal range of motion, no tenderness, supple, no lymphadenopathy, No adenopathy, no JVD. CHEST: Clear breath sounds bilaterally. No wheezes, rales, or rhonchi. Chest wall nontender CARDIAC: Regular rate and rhythm. S1 and S2, without murmurs, gallops, or rubs. VASCULAR: No Edema. Peripheral pulses normal and equal in all extremities. ABDOMEN: Normal and soft with no tenderness, no masses or pulsatile masses. No organomegaly. Positive bowel sounds x4. No CVA tenderness noted bilaterally. GASTROINTESTINAL: Bowel sounds normal GENITOURINARY: Normal, No tenderness LYMPATHTIC: No lymphadenopathy noted. MUSCULOSKELETAL: Good range of motion of all major joints. Extremities without clubbing, cyanosis or edema. NEUROLOGICAL: Alert and oriented x 3. No focal sensory or strength deficits. Speech normal. Follows commands appropriately. PSYCHIATRIC: Normal Affect, judgement and mood. SKIN: Normal appearance with no rashes or lesions. Course - Re-evaluation Re-evalutation: 10/09/19 16:47 Reviewed initial labs and ultrasound results with patient. Counseled on need for CT. Patient is resting comfortably no acute distress at this time. Aware pending test prior to CT. 10/09/19 17:21 HEART Score: History 0 ECG 1 Age 0 Risk Factors 0 Troponin 0 Total: 1 10/09/19 16:43 Reviewed lab results and ultrasound report with patient. Elevated liver enzymes will get CT abdomen and pelvis with IV contrast. Patient remains pain-free on exam. Denies any pain. hCG and CT pending 10/09/19 18:29 Patient is resting comfortably she has no acute distress at this time. Reviewed orthostatic vital signs pulse increased but blood pressure remained the same no significant abnormalities. She is pain-free on exam. All test results were reviewed with the patient. She was counseled need to follow-up outpatient with her general surgeon for her elevated liver enzymes. Discussed right ovarian cyst outpatient follow-up with gynecology. On-call physician was provided. Patient was given strict return to the emergency room guidelines. Return for any new or worsening symptoms. All questions were answered. Patient verbalized understanding and agrees with plan of care. Chest pain in a patient without evidence of cardiac or other serious etiology on workup today. I discussed with patient that, based on their age, risk factors and emergency department testing today, the likelihood that their symptoms are related to a heart attack is very low (estimated risk of heart attack or over the next 30 days of less than 1%). The patient demonstrates decision jorge ng capacity and has verbalized an understanding of these risks to me. Based on this, the patient has chosen to follow-up as an outpatient. Usual chest pain return precautions reviewed. The patient states understanding and agreement with this plan. 10/09/19 19:50 - Vital Signs Vital signs: Temp Pulse Resp BP Pulse Ox 99.0 F 84 18 137/87 H 100 10/09/19 18:53 10/09/19 18:53 10/09/19 18:53 10/09/19 18:53 10/09/19 18:53 - Laboratory Result Diagrams: 10/09/19 15:37 10/09/19 15:37 Laboratory results interpreted by me: 10/09/19 10/09/19 10/09/19 15:37 15:37 16:10 MCV 76 L MCH 24.7 L RDW 15.9 H Direct Bilirubin 0.5 H AST 204 H ALT 479 H Alkaline Phosphatase 214 H Urine Protein 30 H Urine Urobilinogen 4.0 H Ur Leukocyte Esterase SMALL H - Diagnostic Test Radiology reviewed: Reports reviewed - EKG Interpretation by Me EKG shows normal: Sinus rhythm Rate: Normal Rhythm: NSR Additional EKG results interpreted by me: 10/09/19 17:20 EKG was interpreted by ER physician Dr. Velez No acute STEMI Sinus rhythm Rate 86 Nonspecific T wave abnormalities inferior leads Normal axis Discharge - Discharge Clinical Impression: Abdominal pain of unknown cause, Elevated LFTs, Chest pain of unknown etiology, Right ovarian cyst Condition: Stable Disposition: HOME, SELF-CARE Instructions: Abdominal Pain ([facility]), Liver Function Abnormality ([facility]) Additional Instructions: Your liver enzymes are elevated as we discussed. Recommend outpatient follow-up with your surgeon. Return to the emergency room for any new or worsening symptoms. Referrals: ROSALINO LE MD [NO LOCAL MD] - Follow up as needed SHIV GELLER MD [ACTIVE PROVISIONAL STAFF] - Follow up as needed
[2019-10-09 17:06] LABS: APPEARANCE,URINE CLEAR; BILIRUBIN,URINE NEGATIVE (NEGATIVE); GLUCOSE, URINE NEGATIVE (NEGATIVE); KETONES,URINE NEGATIVE (NEGATIVE); LEUKOCYTE ESTERASE,URINE SMALL (NEGATIVE); NITRITE,URINE NEGATIVE (NEGATIVE); PROTEIN,URINE 30 mg/dL (NEGATIVE); URINE SPECIFIC GRAVITY 1.025
[2019-10-09 17:07] LABS: COLOR,URINE YELLOW
--- NOTE | 2019-10-09 18:21 | RADIOLOGY REPORT (SQ) ---
EXAM DESCRIPTION: CT ABD/PELVIS WITH IV ONLY IMAGES COMPLETED DATE/TIME: 10/09/2019 5:45 pm REASON FOR STUDY: abdominal pain COMPARISON: 12/25/2018 TECHNIQUE: CT scan of the abdomen and pelvis performed using helical scanning technique with dynamic intravenous contrast injection. No oral contrast. Images reviewed with lung, soft tissue, and bone windows. Reconstructed coronal and sagittal MPR images reviewed. Delayed images for evaluation of the urinary system also acquired. All images stored on PACS. All CT scanners at this facility use dose modulation, iterative reconstruction, and/or weight based d osing when appropriate to reduce radiation dose to as low as reasonably achievable (ALARA). [facility]: Dose Right [facility]: CareDose [facility]: Dose Right [facility]: Teradose 4D [facility]: [employer] CONTRAST TYPE AND DOSE: contrast/concentration: Isovue 350.00 mmol/ml; Total Contrast Delivered: 100 .0 ml; Total Saline Delivered: 59.9 ml RENAL FUNCTION: None required. The patient is less than 50 years old. RADIATION DOSE: CT Rad equipment meets quality standard of care and radiation dose reduction techniq ues were employed. CTDIvol: 16.1 - 19.9 mGy. DLP: 1996 mGy-cm.. LIMITATIONS: None. FINDINGS: LOWER CHEST: No significant findings. No nodules or infiltrates. LIVER: Normal size. No masses. No dilated ducts. SPLEEN: Normal size. No focal lesions. PANCREAS: No masses. No significant calcifications. No adjacent inflammation or peripancreatic fluid collections. Pancreatic duct not dilated. GALLBLADDER: Surgically absent. ADRENAL GLANDS: No significant masses or asymmetry. RIGHT KIDNEY AND URETER: No solid masses. No significant calcifications. No hydronephrosis or hyd roureter. LEFT KIDNEY AND URETER: No solid masses. No significant calcifications. No hydronephrosis or hydr oureter. AORTA AND VESSELS: No aneurysm. No dissection. Renal arteries, SMA, celiac without stenosis. RETROPERITONEUM: No retroperitoneal adenopathy, hemorrhage or masses. BOWEL AND PERITONEAL CAVITY: Retained stool. No obvious bowel mass or inflammation. APPENDIX: Normal. PELVIS: 34 mm right adnexal cyst. No free pelvic fluid. No solid pelvic mass. Urinary bladder is n ormal. ABDOMINAL WALL: No masses. No hernias. BONES: No significant or acute findings. OTHER: No other significant finding. IMPRESSION: 1. Possible constipation. 2. 34 mm right adnexal cyst is almost certainly benign. No additional imaging is required for this. TECHNICAL DOCUMENTATION: JOB ID: [id number] Quality ID # [id number]: Final reports with documentation of one or more dose reduction techniques (e.g., Au tomated exposure control, adjustment of the mA and/or kV according to patient size, use of iterative reconstruction technique) 2010 [employer]- All Rights Reserved Reading location - IP/workstation name: [email or web address]
[2019-10-09 18:54] VITALS: BP 137/87
== END 2019-10-09 18:59 | disposition home or self-care (01) ==
LOC: ER 13:49
DX: N83.201 Unspecified ovarian cyst, right side (principal); R07.9 Chest pain, unspecified; R74.8 Abnormal levels of other serum enzymes; R11.0 Nausea; R53.83 Other fatigue; R10.9 Unspecified abdominal pain; J45.909 Unspecified asthma, uncomplicated; Z90.49 Acquired absence of other specified parts of digestive tract; Z87.19 Personal history of other diseases of the digestive system; Z98.890 Other specified postprocedural states; Z86.711 Personal history of pulmonary embolism; Z91.048 Other nonmedicinal substance allergy status; Z88.8 Allergy status to other drugs, medicaments and biological substances; Z82.49 Family history of ischemic heart disease and other diseases of the circulatory system
CPT/HCPCS: 93005; 99285; 36415; 83690; 84703; 85025; 80053; 81001; 84484; 76705; 93976; 74177; 93010; S0119

== ENCOUNTER → 2020-01-13 | Outpatient (CLI) | payer BC ==
[2020-01-13 14:35] LABS: ALKALINE PHOSPHATASE 62 U/L (38-126); ANION GAP 7 (5-19); ASPARTATE AMINO TRANSFERASE 13 U/L (14-36); BILIRUBIN,DIRECT 0.1 mg/dL (0.0-0.4); BILIRUBIN,TOTAL 0.4 mg/dL (0.2-1.3); BLOOD UREA NITROGEN 8 mg/dL (7-20); CALCIUM 9.5 mg/dL (8.4-10.2); CARBON DIOXIDE 26 mmol/L (22-30); CHLORIDE 105 mmol/L (98-107); GLUCOSE 100 mg/dL (75-110); POTASSIUM 4.4 mmol/L (3.6-5.0); TOTAL PROTEIN 6.4 g/dL (6.3-8.2)
== END ==
LOC: OD 12:33
PROVIDERS: ATTEND Internal Medicine
DX: K80.50 Calculus of bile duct without cholangitis or cholecystitis without obstruction (principal)
CPT/HCPCS: 36415; 80053

== ENCOUNTER → 2020-03-19 | Outpatient (CLI) | payer BC ==
[2020-03-19 11:32] LABS: HEMATOCRIT 36.6 % (36.0-47.0); HEMOGLOBIN 11.8 g/dL (12.0-15.5); MEAN CORPUSCULAR HGB CONC 32.3 g/dL (32.0-36.0); MEAN CORPUSCULAR VOLUME 71 fl (80-97); PLATELET COUNT 243 10^3/uL (150-450); RED BLOOD COUNT 5.12 10^6/uL (3.72-5.28); RED CELL DISTRIBUTION WIDTH 15.3 % (11.5-14.0); WHITE BLOOD COUNT 6.5 10^3/uL (4.0-10.5)
[2020-03-19 12:02] LABS: ALBUMIN 4.2 g/dL (3.5-5.0); ALKALINE PHOSPHATASE 335 U/L (38-126); ANION GAP 6 (5-19); ASPARTATE AMINO TRANSFERASE 588 U/L (14-36); BILIRUBIN,DIRECT 1.5 mg/dL (0.0-0.4); BILIRUBIN,TOTAL 2.3 mg/dL (0.2-1.3); BLOOD UREA NITROGEN 7 mg/dL (7-20); CALCIUM 9.8 mg/dL (8.4-10.2); CARBON DIOXIDE 29 mmol/L (22-30); CHLORIDE 102 mmol/L (98-107); GLUCOSE 103 mg/dL (75-110); POTASSIUM 4.6 mmol/L (3.6-5.0)
== END ==
LOC: OD 10:42
PROVIDERS: ATTEND Internal Medicine
DX: K80.50 Calculus of bile duct without cholangitis or cholecystitis without obstruction (principal)
CPT/HCPCS: 36415; 80053; 85027